=== PATIENT | female | born 1945 | race Caucasian/White ===

== ENCOUNTER → 2016-04-03 | Outpatient (CLI) | payer MEDICARE | LOC: GMAJ 10:58 | PROVIDERS: ATTEND Family Medicine | DX: M25.559 Pain in unspecified hip (principal) ==

== ENCOUNTER → 2016-04-27 | Outpatient (CLI) | payer MEDICARE ==
--- NOTE | 2016-04-28 07:46 | MRI ---
EXAM DESCRIPTION: MR LUMBAR SPINE WITHOUT IV CONTRAST CLINICAL HISTORY: 70 y/o F, RADICULITIS COMPARISON: None TECHNIQUE: Multi planar, multi sequence imaging of the lumbar spine was acquired without IV contrast. FINDINGS: Hemangioma seen within the T12 vertebral body. Marrow signal and alignment is unremarkable. Disc desiccation from L3-4 through L5-S1. Height loss at L3-4 and L4-5. The conus terminates at L1-L2. It is unremarkable. L1-L2: Facet degeneration. No spinal canal or neural foraminal narrowing. L2-L3: Facet degeneration. No spinal canal or neural foraminal narrowing. L3-4: Facet degeneration, ligamentum flavum thickening and a 4 mm circumferential disc bulge. No spinal canal or neural foraminal narrowing. L4-5: Moderate facet degeneration, ligamentum flavum thickening and a 4 mm circumferential disk osteophyte complex. The midline diameter of the spinal canal is narrowed to 8 mm. There is moderate bilateral neural foraminal narrowing. L5-S1: Mild facet degeneration. 2 mm circumferential disc bulge. No spinal canal or neural foraminal narrowing. IMPRESSION: Today's exam demonstrates multilevel degenerative change as described above, but no exiting or descending nerve root contact. There is mild spinal canal narrowing at L4-5 with moderate bilateral neural foraminal narrowing at L4-5 only. Large benign hemangioma seen within the T12 vertebral body. Electronically signed by: Adam Gallegos MD 04/28/2016 07:43
== END ==
LOC: MRI 11:56
PROVIDERS: ATTEND Anesthesiology Pain Medicine
DX: M54.17 Radiculopathy, lumbosacral region (principal); M12.88 Other specific arthropathies, not elsewhere classified, other specified site; D18.09 Hemangioma of other sites

== ENCOUNTER → 2016-04-27 | Outpatient (CLI) | payer MEDICARE | LOC: YCFC.O 09:54 | PROVIDERS: ATTEND Anesthesiology Pain Medicine | DX: Z79.891 Long term (current) use of opiate analgesic (principal) | CPT/HCPCS: 80354; 80358; 80365; G0479 ==

== ENCOUNTER 2016-05-04 18:01 | Emergency (ER) | payer MEDICARE ==
[2016-05-04] MEDS ORDERED: IPRATROPIUM/ALBUTEROL 3 ML VIAL NEB ONE (19:11)
--- NOTE | 2016-05-04 19:30 | RAD ---
NAME: VAIBHAV LEOPROCEDURE: XR CHEST 2 VIEWSORDER DATE: 05/04/2016 7:11 PM CSTACCESSION NUMBER: [id number] CLINICAL HISTORY: SOB INDICATION: Same as above COMPARISON: 03/04/2016 TECHNIQUE: PA and and lateral chest radiographs were obtained. FINDINGS: The lung thao are well inflated. There are no discrete airspace infiltrates, pneumothoraces or pleural effusions. The pulmonary vascularity is normal The cardiomediastinal silhouette is unremarkable for patient's age and sex. IMPRESSION: There is no acute pleural-parenchymal process seen in the imaged lung thao. Place of interpretation: Teleradiology. Electronically signed by: Gregg William MD 05/04/2016 7:29 PM SAMPLE SHOE INSPECTOR AND REWORKER
--- NOTE | 2016-05-04 20:04 | ED.PDOC ---
History of Present Illness - General Chief Complaint: Respiratory Problem Time Seen by Provider: 05/04/16 19:08 Source: patient, RN notes reviewed, Vital Signs reviewed Exam Limitations: no limitations - History of Present Illness Initial Comments: Patient is a 70 y/o female who comes in complaining of shortness of breath which started early this am. She has no cough or fever. She took some Coricidin earlier which did not help at all. She has a history of chronic bronchitis, however, she is not coughing this time. Timing/Duration: 24 hours Severity: moderate Improving Factors: nothing Worsening Factors: movement Associated Symptoms: shortness of breath Allergies/Adverse Reactions: Allergies Codeine Allergy (Verified 03/04/16 21:16) Home Medications: Ambulatory Orders Lorazepam 2 mg PO 11/21/13 Zyprexa 11/21/13 Zonisamide [Zonegran] 100 mg PO 08/16/14 Gabapentin 05/04/16 Ipratropium/Albuterol Inhaler [Combivent Respimat 20-100 Mcg/Act] 1 puff INH Q6H PRN #1 inh 05/04/16 Methylprednisolone [Medrol Dose Torin] 4 mg PO DAILY #1 pack 05/04/16 Pristiq 05/04/16 Review of Systems - Review of Systems Constitutional: States: no symptoms reported EENTM: States: no symptoms reported Respiratory: States: short of breath Cardiology: States: no symptoms reported Gastrointestinal/Abdominal: States: no symptoms reported Genitourinary: States: no symptoms reported Musculoskeletal: States: back pain Skin: States: no symptoms reported Neurological: States: no symptoms reported Endocrine: States: no symptoms reported Hematologic/Lymphatic: States: no symptoms reported All other Systems: Reviewed and Negative Past Medical History (General) - Patient Medical History Hx Seizures: Yes Hx Stroke: No Hx Dementia: No Hx Asthma: No Hx of COPD: No Hx Cardiac Disorders: Yes - Heart Cath Hx Congestive Heart Failure: No Hx Pacemaker: No Hx Hypertension: Yes Hx Thyroid Disease: No Hx Diabetes: No Hx Gastroesophageal Reflux: No Hx Renal Disease: No Hx Cancer: No Hx of HIV: No Hx Hepatitis C: No Hx MRSA: No MRSA Source:: Wound - Vaccination History Hx Tetanus, Diphtheria Vaccination: Yes Hx Influenza Vaccination: Yes Hx Pneumococcal Vaccination: Yes Immunizations Up to Date: Yes - Social History Hx Tobacco Use: No Hx Chewing Tobacco Use: No Hx Alcohol Use: No Hx Substance Use: No Hx Substance Use Treatment: No Hx Depression: No Feels Threatened In Home Enviroment: No Feels Threatened In a Relationship: No Hx Physical Abuse: No Hx Emotional Abuse: No Hx Suspected Abuse: No - Female History Patient is a Female of Child Bearing Age (10 -59 yrs old): No Patient : No Family Medical History - Family History Mother Family History: No Known Physical Exam - Physical Exam General Appearance: Alert, Comfortable, No apparent distress Ears, Nose, Throat: hearing grossly normal, normal ENT inspection Respiratory: lungs clear, no respiratory distress, no accessory muscle use, decreased breath sounds Cardiovascular/Chest: regular rate, rhythm, no edema, no gallop, no murmur Gastrointestinal/Abdominal: normal bowel sounds, non tender, soft, no organomegaly Extremity: non-tender, no pedal edema, no calf tenderness Neurologic: alert, normal mood/affect, oriented x 3 Skin Exam: normal color, warm/dry Progress - Results/Orders Results/Orders: 05/04/16 05/04/16 18:51 19:27 Temperature 98.8 F Pulse Rate 70 Pulse Rate [L 75 Arm] Respiratory 20 20 Rate Blood Pressure 141/78 [L Arm] O2 Sat by Pulse 93 L 98 Oximetry - EKG/XRAY/CT EKG: Sinus, no ST T wave changes, Unchanged from - 02/11/2016 Comments: NML axis, NML intervals, Normal sinus rhythm XRAY: chest Xray Comments: No acute process Departure - Departure Clinical Impression: Reactive airway disease with acute exacerbation Time of Disposition: 21:04 Disposition: Discharge to Home or Self Care Condition: Fair Departure Forms: ED Discharge - Pt. Copy, Patient Portal Self Enrollment Instructions: DI for Reactive Airway Disease-Adult, Reactive Airway Disease- Adult Diet: resume usual diet Referrals: Justin Harrison MD [Primary Care Provider] - 1-2 Weeks Prescriptions: Ipratropium/Albuterol Inhaler [Combivent Respimat 20-100 Mcg/Act] 1 puff INH Q6H PRN #1 inh PRN Reason: Shortness Of Breath Methylprednisolone [Medrol Dose Torin] 4 mg PO DAILY #1 pack Home Medications: Ambulatory Orders Lorazepam 2 mg PO 11/21/13 Zyprexa 11/21/13 Zonisamide [Zonegran] 100 mg PO 08/16/14 Gabapentin 05/04/16 Ipratropium/Albuterol Inhaler [Combivent Respimat 20-100 Mcg/Act] 1 puff INH Q6H PRN #1 inh 05/04/16 Methylprednisolone [Medrol Dose Torin] 4 mg PO DAILY #1 pack 05/04/16 Pristiq 05/04/16 Additional Instructions: Follow up in ED if symptoms worsen.
[2016-05-04] MEDS ORDERED: methylPREDNISolone SODIUM SUC 125 MG/2 ML VIAL IM ONE (20:22)
[2016-05-04 20:45] VITALS: TEMP 98.6
[2016-05-04 21:40] VITALS: BP 132/79; O2SAT 97
--- NOTE | 2016-05-24 23:55 | RAD ---
NAME: VAIBHAV LEOPROCEDURE: XR CHEST 2 VIEWSORDER DATE: 05/04/2016 7:11 PM CSTACCESSION NUMBER: [id number] CLINICAL HISTORY: SOB INDICATION: Same as above COMPARISON: 03/04/2016 TECHNIQUE: PA and and lateral chest radiographs were obtained. FINDINGS: The lung thao are well inflated. There are no discrete airspace infiltrates, pneumothoraces or pleural effusions. The pulmonary vascularity is normal The cardiomediastinal silhouette is unremarkable for patient's age and sex. IMPRESSION: There is no acute pleural-parenchymal process seen in the imaged lung thao. Place of interpretation: Teleradiology. Electronically signed by: Gregg William MD 05/04/2016 7:29 PM ESTHETICIAN/SKIN THERAPIST
--- NOTE | 2016-05-25 07:11 | RAD ---
NAME: VAIBHAV LEOPROCEDURE: XR CHEST 2 VIEWSORDER DATE: 05/04/2016 7:11 PM CSTACCESSION NUMBER: [id number] CLINICAL HISTORY: SOB INDICATION: Same as above COMPARISON: 03/04/2016 TECHNIQUE: PA and and lateral chest radiographs were obtained. FINDINGS: The lung thao are well inflated. There are no discrete airspace infiltrates, pneumothoraces or pleural effusions. The pulmonary vascularity is normal The cardiomediastinal silhouette is unremarkable for patient's age and sex. IMPRESSION: There is no acute pleural-parenchymal process seen in the imaged lung thao. Place of interpretation: Teleradiology. Electronically signed by: Gregg William MD 05/04/2016 7:29 PM TECHNOLOGY METHODOLOGY CONSULTANT
== END 2016-05-04 21:39 | disposition home or self-care (01) ==
LOC: ER 18:01
DX: J45.901 Unspecified asthma with (acute) exacerbation (principal); I10 Essential (primary) hypertension; Z88.6 Allergy status to analgesic agent; Z79.899 Other long term (current) drug therapy
CPT/HCPCS: 71020; 93005; 94640; J2930; J7620

== ENCOUNTER 2016-06-08 08:00 | Day surgery (SDC) | payer MEDICARE ==
[2016-06-08] MEDS ORDERED: methylPREDNISolone ACETATE 80 MG/ML VIAL ONE (09:58)
[2016-06-08] MEDS ORDERED: SODIUM BICARBONATE VIAL 50 MEQ/50 ML VIAL ONE (09:58)
[2016-06-08] MEDS ORDERED: SODIUM CHLORIDE 0.9% 10 ML VIAL ONE (09:58)
[2016-06-08] MEDS ORDERED: LIDOCAINE 1% MPF 5 ML VIAL ONE ×2 (09:58→10:09)
[2016-06-08 12:07] VITALS: BP 151/84; O2SAT 97
[2016-06-08 13:06] VITALS: TEMP 97.2
== END 2016-06-08 13:00 | disposition home or self-care (01) ==
LOC: AMB 08:00
PROVIDERS: ATTEND Anesthesiology Pain Medicine
DX: M51.16 Intervertebral disc disorders with radiculopathy, lumbar region (principal); Z88.8 Allergy status to other drugs, medicaments and biological substances; Z79.899 Other long term (current) drug therapy
CPT/HCPCS: 62323; 76000; J1030

== ENCOUNTER → 2016-10-02 | Outpatient (CLI) | payer MEDICARE ==
--- NOTE | 2016-10-02 18:19 | RAD ---
EXAM DESCRIPTION: Chest,2 Views CLINICAL HISTORY: 71 years Female COUGH COMPARISON: 05/04/2016 FINDINGS: The cardiomediastinal silhouette appears unremarkable. No consolidating infiltrates or pleural effusions. No pneumothorax. IMPRESSION: No acute abnormality is identified. Electronically signed by: Kaye Suarez 10/02/2016 6:18 PM CDT
== END | disposition home or self-care (01) ==
LOC: YCFC.O 13:48
PROVIDERS: ATTEND Nurse Practitioner Family
DX: R05 Cough (principal); R09.89 Other specified symptoms and signs involving the circulatory and respiratory systems

== ENCOUNTER → 2016-11-05 | Outpatient (CLI) | payer MEDICARE | END | disposition home or self-care (01) | LOC: GMAJ 11:08 | PROVIDERS: ATTEND Family Medicine | DX: E78.00 Pure hypercholesterolemia, unspecified (principal); I10 Essential (primary) hypertension; E11.9 Type 2 diabetes mellitus without complications ==

== ENCOUNTER → 2016-11-27 | Outpatient (CLI) | payer MEDICARE | END | disposition home or self-care (01) | LOC: GMA 19:05 | PROVIDERS: ATTEND Nurse Practitioner Family | DX: R30.0 Dysuria (principal); N30.00 Acute cystitis without hematuria ==

== ENCOUNTER → 2016-12-31 | Outpatient (CLI) | payer MEDICARE | END | disposition home or self-care (01) | LOC: GMA 16:52 | PROVIDERS: ATTEND Nurse Practitioner Family | DX: N39.0 Urinary tract infection, site not specified (principal) ==

== ENCOUNTER → 2017-04-08 | Outpatient (CLI) | payer MEDICARE | END | disposition home or self-care (01) | LOC: GMATM 17:46 | PROVIDERS: ATTEND Nurse Practitioner Family | DX: N39.0 Urinary tract infection, site not specified (principal) ==

== ENCOUNTER 2017-04-23 14:59 | Emergency (ER) | payer MEDICARE, OTHER ==
[2017-04-23 15:36] VITALS: BP 155/83; TEMP 98.2; O2SAT 95
--- NOTE | 2017-04-23 15:55 | ED.PDOC ---
History of Present Illness - General Chief Complaint: Problem Time Seen by Provider: 04/23/17 15:01 Source: patient Exam Limitations: no limitations - History of Present Illness Timing/Duration: 1 week, other - PT HAS SEEN BOTH A UROLOGIST AND PLASTIC HOSPITAL PRODUCTS ASSEMBLER FOR THE SAME ISSUES Severity: mild Improving Factors: nothing Worsening Factors: nothing Associated Symptoms: other - DYSURIA Allergies/Adverse Reactions: Allergies Codeine Allergy (Verified 03/04/16 21:16) Home Medications: Ambulatory Orders Lorazepam 2 mg PO 11/21/13 Zyprexa 11/21/13 Zonisamide [Zonegran] 100 mg PO 08/16/14 Gabapentin 05/04/16 Ipratropium/Albuterol Inhaler [Combivent Respimat 20-100 Mcg/Act] 1 puff INH Q6H PRN #1 inh 05/04/16 Methylprednisolone [Medrol Dose Torin] 4 mg PO DAILY #1 pack 05/04/16 Pristiq 05/04/16 Phenazopyridine HCl [Pyridium] 200 mg PO Q8HRS #14 tab 04/23/17 Review of Systems - Review of Systems Constitutional: States: chills EENTM: States: no symptoms reported Respiratory: States: no symptoms reported Cardiology: States: no symptoms reported Gastrointestinal/Abdominal: States: no symptoms reported Genitourinary: States: dysuria, frequency, pain Musculoskeletal: States: no symptoms reported Skin: States: no symptoms reported Neurological: States: no symptoms reported Endocrine: States: no symptoms reported Hematologic/Lymphatic: States: no symptoms reported All other Systems: Reviewed and Negative Past Medical History (General) - Patient Medical History Hx Seizures: No Hx Stroke: No Hx Dementia: No Hx Asthma: No Hx of COPD: No Hx Cardiac Disorders: Yes - Heart Cath Hx Congestive Heart Failure: No Hx Pacemaker: No Hx Hypertension: Yes Hx Thyroid Disease: No Hx Diabetes: No Hx Gastroesophageal Reflux: No Hx Renal Disease: Yes - SEES [employer]. MCQUEEN Hx Cancer: No Hx of HIV: No Hx Hepatitis C: No Hx MRSA: No Hx Other PMH: Yes - PSYCHIATRIC DISORDER MRSA Source:: Wound - Vaccination History Hx Tetanus, Diphtheria Vaccination: Yes Hx Influenza Vaccination: No Hx Pneumococcal Vaccination: Yes - Social History Hx Tobacco Use: No Hx Chewing Tobacco Use: No Hx Alcohol Use: No Hx Substance Use: No Hx Substance Use Treatment: No Hx Depression: No Hx Physical Abuse: No Hx Emotional Abuse: No Hx Suspected Abuse: No - Female History Patient : No Family Medical History - Family History Mother Family History: No Known Physical Exam - Physical Exam General Appearance: Alert, No apparent distress, Obese, Well Developed, Well Hydrated, Well Nourished Eye Exam: bilateral normal Ears, Nose, Throat: hearing grossly normal, normal ENT inspection, normal pharynx Neck: non-tender, full range of motion, supple Respiratory: chest non-tender, lungs clear, normal breath sounds, no respiratory distress, no accessory muscle use Cardiovascular/Chest: normal peripheral pulses, regular rate, rhythm, no edema, no gallop, no JVD Peripheral Pulses: radial,right: 2+, radial,left: 2+, posterior tibialis,right: 2+, posterior tibialis,left: 2+ Gastrointestinal/Abdominal: normal bowel sounds, non tender, soft, no organomegaly, no pulsatile mass Rectal Exam: deferred Back Exam: normal inspection, no CVA tenderness, no vertebral tenderness Extremity: normal range of motion, non-tender, normal inspection Skin Exam: normal color, warm/dry Lymphatic: no adenopathy Progress - Progress Progress: 04/23/17 16:30 PT URINE CLEAN. WILL START PYRIDIUM. PT HAS AN APPOINTMENT WEDNESDAY WITH DR. PALOMARES. Departure - Departure Clinical Impression: Dysuria, Urethritis Time of Disposition: 16:32 Disposition: Discharge to Home or Self Care Departure Forms: ED Discharge - Pt. Copy, Patient Portal Self Enrollment Activity: increase activity as tolerated Referrals: Justin Harrison MD [Primary Care Provider] - 1-2 Weeks Prescriptions: Phenazopyridine HCl [Pyridium] 200 mg PO Q8HRS #14 tab Home Medications: Ambulatory Orders Lorazepam 2 mg PO 11/21/13 Zyprexa 11/21/13 Zonisamide [Zonegran] 100 mg PO 08/16/14 Gabapentin 05/04/16 Ipratropium/Albuterol Inhaler [Combivent Respimat 20-100 Mcg/Act] 1 puff INH Q6H PRN #1 inh 05/04/16 Methylprednisolone [Medrol Dose Torin] 4 mg PO DAILY #1 pack 05/04/16 Pristiq 05/04/16 Phenazopyridine HCl [Pyridium] 200 mg PO Q8HRS #14 tab 04/23/17
[2017-04-23] MEDS ORDERED: PHENAZOPYRIDINE HCL 200 MG TAB PO ONE (16:28)
== END 2017-04-23 16:44 | disposition home or self-care (01) ==
LOC: ER 14:59
DX: N34.2 Other urethritis (principal); I10 Essential (primary) hypertension; F99 Mental disorder, not otherwise specified; Z79.899 Other long term (current) drug therapy

== ENCOUNTER → 2017-05-07 | Outpatient (CLI) | payer MEDICARE | LOC: LAB.O 09:58 | PROVIDERS: ATTEND Psychiatry & Neurology Psychiatry | DX: F25.0 Schizoaffective disorder, bipolar type (principal) ==

== ENCOUNTER 2017-07-18 18:14 | Emergency (ER) | payer MEDICARE, OTHER ==
[2017-07-18 18:28] VITALS: BP 136/84; TEMP 98.3; O2SAT 97
[2017-07-18] MEDS ORDERED: FLUCONAZOLE 100 MG TAB PO ONE (19:01)
--- NOTE | 2017-07-18 19:04 | ED.PDOC ---
History of Present Illness - General Chief Complaint: Problem Stated Complaint: burning with urination Time Seen by Provider: 07/18/17 18:35 Source: patient Exam Limitations: no limitations - History of Present Illness Initial Comments: the patient is a 72-year-old female presenting to the emergency room secondary to vaginal pain. The patient reports that she is having vaginal pain for at least 6 weeks. She is scheduled to be getting a urethral sling and a little more than a week with Dr. Jerez. She is urinating. She has been applying Vaseline topically periodically to what appears to be a rectocele. She is not using a pessary. No fevers.she does have significant stress incontinence. Timing/Duration: unsure Severity: moderate Improving Factors: nothing Worsening Factors: nothing Associated Symptoms: denies symptoms Allergies/Adverse Reactions: Allergies Codeine Allergy (Verified 07/18/17 18:28) Home Medications: Ambulatory Orders Lorazepam 2 mg PO 11/21/13 Zyprexa 11/21/13 Zonisamide [Zonegran] 100 mg PO 08/16/14 Gabapentin 05/04/16 Ipratropium/Albuterol Inhaler [Combivent Respimat 20-100 Mcg/Act] 1 puff INH Q6H PRN #1 inh 05/04/16 Methylprednisolone [Medrol Dose Torin] 4 mg PO DAILY #1 pack 05/04/16 Pristiq 05/04/16 Phenazopyridine HCl [Pyridium] 200 mg PO Q8HRS #14 tab 04/23/17 Review of Systems - Review of Systems Constitutional: States: no symptoms reported EENTM: States: no symptoms reported Respiratory: States: no symptoms reported Cardiology: States: no symptoms reported Gastrointestinal/Abdominal: States: no symptoms reported Genitourinary: States: see HPI Musculoskeletal: States: no symptoms reported Skin: States: no symptoms reported Neurological: States: anxiety Endocrine: States: no symptoms reported All other Systems: No Change from Baseline Past Medical History (General) - Patient Medical History Hx Seizures: No Hx Stroke: No Hx Dementia: No Hx Asthma: No Hx of COPD: No Hx Cardiac Disorders: Yes - Heart Cath Hx Congestive Heart Failure: No Hx Pacemaker: No Hx Hypertension: Yes Hx Thyroid Disease: No Hx Diabetes: No Hx Gastroesophageal Reflux: No Hx Renal Disease: Yes - SEES [employer] DR. MCQUEEN Hx Cancer: No Hx of HIV: No Hx Hepatitis C: No Hx MRSA: No MRSA Source:: Wound Surgical History: Hysterectomy, other - Vaccination History Hx Tetanus, Diphtheria Vaccination: Yes Hx Influenza Vaccination: No Hx Pneumococcal Vaccination: No - Social History Hx Tobacco Use: No Hx Chewing Tobacco Use: No Hx Alcohol Use: No Hx Substance Use: No Hx Substance Use Treatment: No Hx Depression: No Hx Physical Abuse: No Hx Emotional Abuse: No Hx Suspected Abuse: No - Female History Patient is a Female of Child Bearing Age (10 -59 yrs old): No Patient : No Family Medical History - Family History Mother Family History: No Known Physical Exam - Physical Exam General Appearance: Alert, Anxious, No apparent distress Eye Exam: bilateral normal Ears, Nose, Throat: hearing grossly normal, normal ENT inspection, normal pharynx Neck: full range of motion, supple Respiratory: no respiratory distress, no accessory muscle use Cardiovascular/Chest: normal peripheral pulses, no edema Peripheral Pulses: radial,right: 2+, radial,left: 2+, dorsalis pedis,right: 1+, dorsalis pedis,left: 1+ Gastrointestinal/Abdominal: non tender, soft Rectal Exam: other - pelvic exam shows a fairly large rectocele that has some mild abrasions from exposure to her underwear. There may also be a small abrasion just inferior to the urethral meatus. Palpation of these abrasions does seem to re-create her pain. Back Exam: no CVA tenderness, no vertebral tenderness Extremity: non-tender, no pedal edema, no calf tenderness, normal capillary refill Neurologic: department clerk II-XII nml as tested, alert, oriented x 3, other - anxiety Skin Exam: normal color Comments: Vital Signs - 24 hr 07/18/17 18:22 Temperature 98.3 F Pulse Rate [ 77 pulse ox] Respiratory 20 Rate Blood Pressure 136/84 [Left Arm] O2 Sat by Pulse 97 Oximetry Progress - Progress Progress: 07/18/17 19:06 the patient is a 72-year-old female presenting to the emergency room with what appears to be pain from a mechanical vaginitis likely related to her rectocele and exposure to the outside environment due to it. She is apparently scheduled for a repair with Dr. Jerez in the next week or 2. She needs to increase the frequency of applying a lubricant. She was given 1 dose of Diflucan in case a recurrent yeast infection is contributing somewhat to her symptoms. She can continue her home medications otherwise. She can discuss with Dr. Jerez this coming week if her surgery can be moved up secondary to discomfort. ER warnings were given. Departure - Departure Clinical Impression: Vaginitis Qualifiers: Chronicity: subacute Qualified Code(s): N76.1 - Subacute and chronic vaginitis Disposition: Discharge to Home or Self Care Condition: Fair Departure Forms: ED Discharge - Pt. Copy, Patient Portal Self Enrollment Instructions: Atrophic Vaginitis Diet: regular diet Activity: increase activity as tolerated Referrals: Justin Harrison MD [Primary Care Provider] - 1-2 Weeks Home Medications: Ambulatory Orders Lorazepam 2 mg PO 11/21/13 Zyprexa 11/21/13 Zonisamide [Zonegran] 100 mg PO 08/16/14 Gabapentin 05/04/16 Ipratropium/Albuterol Inhaler [Combivent Respimat 20-100 Mcg/Act] 1 puff INH Q6H PRN #1 inh 05/04/16 Methylprednisolone [Medrol Dose Torin] 4 mg PO DAILY #1 pack 05/04/16 Pristiq 05/04/16 Phenazopyridine HCl [Pyridium] 200 mg PO Q8HRS #14 tab 04/23/17 Additional Instructions: the patient is a 72-year-old female presenting to the emergency room with what appears to be pain from a mechanical vaginitis likely related to her rectocele and exposure to the outside environment due to it. She is apparently scheduled for a repair with Dr. Jerez in the next week or 2. She needs to increase the frequency of applying a lubricant. She was given 1 dose of Diflucan in case a recurrent yeast infection is contributing somewhat to her symptoms. She can continue her home medications otherwise. She can discuss with Dr. Jerez this coming week if her surgery can be moved up secondary to discomfort. ER warnings were given.
== END 2017-07-18 19:27 | disposition home or self-care (01) ==
LOC: ER 18:14
DX: N76.1 Subacute and chronic vaginitis (principal); N81.6 Rectocele; I10 Essential (primary) hypertension

== ENCOUNTER 2017-08-04 16:27 | Emergency (ER) | payer MEDICARE, OTHER ==
[2017-08-04 16:48] VITALS: BP 158/87; TEMP 97.6; O2SAT 94
--- NOTE | 2017-08-04 17:44 | ED.PDOC ---
History of Present Illness - General Chief Complaint: Problem Stated Complaint: urinary retention Time Seen by Provider: 08/04/17 16:49 Source: patient Exam Limitations: no limitations - History of Present Illness Initial Comments: Marly Clemente 72 y/o female stated that she had frequency of urination and burning sensation when she urinates for the last 7 weeks initally was seen by her cushion former and was told no surgical indication for her OAB at this time.She has history of dementia.Had seen primary Md and appointment with Urologist pending. Timing/Duration: other - see hpi Quality: burning, intermittent Onset Location: suprapubic Radiation: none Activites at Onset: none Prior abdominal problems: none Sexual intercourse history: not active Improving Factors: nothing Worsening Factors: other - see hpi Associated Symptoms: urinary frequency Allergies/Adverse Reactions: Allergies Codeine Allergy (Verified 08/04/17 16:48) Tramadol Allergy (Verified 08/04/17 16:49) Home Medications: Ambulatory Orders Lorazepam 2 mg PO 11/21/13 Zyprexa 11/21/13 Zonisamide [Zonegran] 100 mg PO 08/16/14 Gabapentin 05/04/16 Ipratropium/Albuterol Inhaler [Combivent Respimat 20-100 Mcg/Act] 1 puff INH Q6H PRN #1 inh 05/04/16 Methylprednisolone [Medrol Dose Torin] 4 mg PO DAILY #1 pack 05/04/16 Pristiq 05/04/16 Phenazopyridine HCl [Pyridium] 200 mg PO Q8HRS #14 tab 04/23/17 Review of Systems - Review of Systems Constitutional: States: no symptoms reported EENTM: States: no symptoms reported Respiratory: States: no symptoms reported Cardiology: States: no symptoms reported Genitourinary: States: see HPI Neurological: States: emotional problems All other Systems: Reviewed and Negative, No Change from Baseline Past Medical History (General) - Patient Medical History Hx Seizures: No Hx Stroke: No Hx Dementia: Yes Hx Asthma: No Hx of COPD: No Hx Cardiac Disorders: Yes - Heart Cath Hx Congestive Heart Failure: No Hx Pacemaker: No Hx Hypertension: Yes Hx Thyroid Disease: No Hx Diabetes: No Hx Gastroesophageal Reflux: No Hx Renal Disease: Yes - SEES [employer] DR. MCQUEEN Hx Cancer: No Hx of HIV: No Hx Hepatitis C: No Hx MRSA: No MRSA Source:: Wound Surgical History: cholecystectomy, other - left knee - Vaccination History Hx Tetanus, Diphtheria Vaccination: Yes Hx Influenza Vaccination: No Hx Pneumococcal Vaccination: No - Social History Hx Tobacco Use: No Hx Chewing Tobacco Use: No Hx Alcohol Use: No Hx Substance Use: No Hx Substance Use Treatment: No Hx Depression: No Hx Physical Abuse: No Hx Emotional Abuse: No Hx Suspected Abuse: No - Activities of Daily Living Grooming Ability: Independent Eating (Feeding) Ability: Independent Toileting Ability: Independent - Female History Patient : No Family Medical History - Family History Mother Family History: No Known Hx Cardiac Disease: Yes - multiple family members Physical Exam - Physical Exam General Appearance: Alert, Comfortable, No apparent distress Eyes, Ears, Nose, Throat Exam: normal ENT inspection Neck: full range of motion, supple, normal inspection Cardiovascular/Respiratory: regular rate, rhythm, no M/R/G, normal peripheral pulses Gastrointestinal/Abdominal: non tender, soft, no organomegaly Pelvic Exam: other - deferred stated done by cushion former Extremity: no pedal edema, no calf tenderness Neurologic: alert, oriented x 3 Skin Exam: normal color, warm/dry, other - healed scars from surgery Progress - Progress Progress: 08/04/17 17:48 Vital Signs - 8 hr 08/04/17 16:35 Temperature 97.6 F Pulse Rate [ 62 pulse ox] Respiratory 18 Rate Blood Pressure 158/87 [Left Arm] O2 Sat by Pulse 94 L Oximetry 08/04/17 17:49 Residual Urine-45 cc staight cath Departure - Departure Clinical Impression: Overactive bladder Time of Disposition: 17:50 Disposition: Discharge to Home or Self Care Condition: Fair Departure Forms: ED Discharge - Pt. Copy, Patient Portal Self Enrollment Instructions: Urinary Incontinence -- Female, DI for Urinary Tract Infection ( UTI), DI for Urinary Incontinence, DI for Urinary Retention in Women Referrals: Justin Harrison MD [Primary Care Provider] - 1-2 Weeks Home Medications: Ambulatory Orders Lorazepam 2 mg PO 11/21/13 Zyprexa 11/21/13 Zonisamide [Zonegran] 100 mg PO 08/16/14 Gabapentin 05/04/16 Ipratropium/Albuterol Inhaler [Combivent Respimat 20-100 Mcg/Act] 1 puff INH Q6H PRN #1 inh 05/04/16 Methylprednisolone [Medrol Dose Torin] 4 mg PO DAILY #1 pack 05/04/16 Pristiq 05/04/16 Phenazopyridine HCl [Pyridium] 200 mg PO Q8HRS #14 tab 04/23/17 Additional Instructions: Continue with antibiotics for UTI which was prescribed by your Md;Follow up with your primary Md for Referral to UROLOGIST;AVOID Caffeine drinks,spicy foods
[2017-08-04] MEDS ORDERED: PHENAZOPYRIDINE HCL 200 MG TAB PO ONE (17:47)
[2017-08-04] MEDS ORDERED: TOLTERODINE TARTRATE ER 4 MG CAP PO ONE (17:47)
== END 2017-08-04 18:10 | disposition home or self-care (01) ==
LOC: ER 16:27
DX: N32.81 Overactive bladder (principal); I10 Essential (primary) hypertension

== ENCOUNTER 2017-08-08 19:38 | Emergency (ER) | payer OTHER ==
--- NOTE | 2017-08-08 20:03 | ED.PDOC ---
History of Present Illness - General Chief Complaint: General Stated Complaint: sob,chest basurto,pain on urination Time Seen by Provider: 08/08/17 20:02 Source: patient Exam Limitations: no limitations, other - poor historian - History of Present Illness Initial Comments: Marly Clemente 72 y/o female stated that she got sob today with burning sensation on her bladder goes up to her chest and urinating more often.She was seen last week for urinary hesitancy but had only 45 cc of residual urine. Timing/Duration: 4-6 hours Severity: moderate Improving Factors: nothing Worsening Factors: nothing Associated Symptoms: other - see hpi Allergies/Adverse Reactions: Allergies Codeine Allergy (Verified 08/08/17 20:12) Tramadol Allergy (Verified 08/08/17 20:12) Home Medications: Ambulatory Orders Lorazepam 2 mg PO 11/21/13 Zyprexa 11/21/13 Zonisamide [Zonegran] 100 mg PO 08/16/14 Gabapentin 05/04/16 Ipratropium/Albuterol Inhaler [Combivent Respimat 20-100 Mcg/Act] 1 puff INH Q6H PRN #1 inh 05/04/16 Methylprednisolone [Medrol Dose Torin] 4 mg PO DAILY #1 pack 05/04/16 Pristiq 05/04/16 Phenazopyridine HCl [Pyridium] 200 mg PO Q8HRS #14 tab 04/23/17 Review of Systems - Review of Systems Constitutional: States: no symptoms reported EENTM: States: no symptoms reported Respiratory: States: no symptoms reported Cardiology: States: see HPI Gastrointestinal/Abdominal: States: no symptoms reported Genitourinary: States: other - OAB Musculoskeletal: States: no symptoms reported Skin: States: no symptoms reported Neurological: States: emotional problems - mental health issues Past Medical History (General) - Patient Medical History Hx Seizures: No Hx Stroke: No Hx Dementia: Yes Hx Asthma: No Hx of COPD: No Hx Cardiac Disorders: Yes - Heart Cath Hx Congestive Heart Failure: No Hx Pacemaker: No Hx Hypertension: Yes Hx Thyroid Disease: No Hx Diabetes: No Hx Gastroesophageal Reflux: No Hx Renal Disease: Yes - SEES [employer] DR. MCQUEEN Hx Cancer: No Hx of HIV: No Hx Hepatitis C: No Hx MRSA: No MRSA Source:: Wound Surgical History: cholecystectomy, other - left knee,cardiac cath - Vaccination History Hx Tetanus, Diphtheria Vaccination: Yes Hx Influenza Vaccination: No Hx Pneumococcal Vaccination: No - Social History Hx Tobacco Use: No Hx Chewing Tobacco Use: No Hx Alcohol Use: No Hx Substance Use: No Hx Substance Use Treatment: No Hx Depression: No Hx Physical Abuse: No Hx Emotional Abuse: No Hx Suspected Abuse: No - Activities of Daily Living Grooming Ability: Independent Eating (Feeding) Ability: Independent Toileting Ability: Independent - Female History Patient : No Family Medical History - Family History Mother Hx Cardiac Disease: Yes - multiple family members Physical Exam - Physical Exam General Appearance: Alert, Anxious, No apparent distress Eye Exam: bilateral normal Ears, Nose, Throat: hearing grossly normal, normal ENT inspection, normal pharynx Neck: non-tender, full range of motion, supple Respiratory: chest non-tender, lungs clear, normal breath sounds, no respiratory distress Cardiovascular/Chest: normal peripheral pulses, regular rate, rhythm, no murmur Peripheral Pulses: radial,right: 2+, radial,left: 2+ Gastrointestinal/Abdominal: normal bowel sounds, non tender, soft Back Exam: no CVA tenderness, no vertebral tenderness Extremity: no pedal edema, no calf tenderness Neurologic: no motor/sensory deficits, alert, oriented x 3 Skin Exam: normal color, warm/dry Progress - Progress Progress: 08/08/17 20:57 Vital Signs - 8 hr 08/08/17 19:45 Temperature 97.7 F Pulse Rate [ 60 monitor] Respiratory 16 Rate Blood Pressure 129/75 [Left Arm] O2 Sat by Pulse 96 Oximetry 08/08/17 21:48 Recommended IVF but does not like to wait wants to go home;discuss all test results that no acute abnormalities noted. - Results/Orders Results/Orders: 08/08/17 20:15 EKG STAT 08/08/17 21:12 BOLUS Sodium Chloride 0.9% 1000ML [Ns 1000 ml] 1,000 ml IVS ONCE Laboratory Results - last 24 hr 08/08/17 08/08/17 08/08/17 20:10 20:20 20:20 WBC 8.0 RBC 4.70 Hgb 13.7 Hct 41.4 MCV 88.0 MCH 29.2 MCHC 33.2 RDW 14.9 H Plt Count 472 H MPV 7.9 Absolute Neuts (auto) 4.90 Absolute Lymphs (auto) 2.30 Absolute Monos (auto) 0.60 Absolute Eos (auto) 0.10 Absolute Basos (auto) 0.10 Neutrophils % 61.2 Lymphocytes % 28.5 Monocytes % 7.9 Eosinophils % 1.1 Basophils % 1.3 PT 14.3 H INR 1.240 PTT (SP) 36.3 D-Dimer, Quantitative < 230 Sodium 138 Potassium 3.3 L Chloride 110 Carbon Dioxide 19 L Anion Gap 12.3 BUN 20 H Creatinine 1.00 BUN/Creatinine Ratio 20.0 Random Glucose 110 H Serum Osmolality 278.9 Calcium 9.5 Magnesium 1.8 Total Bilirubin 0.6 Direct Bilirubin 0.2 Indirect Bilirubin 0.4 AST 19 ALT 14 Alkaline Phosphatase 27 L Creatine Kinase 40 CK-MB (CK-2) 0.9 CK-MB (CK-2) % Not Reportable Troponin I < 0.02 B-Natriuretic Peptide 38.7 Serum Total Protein 7.3 Albumin 4.5 Urine Color Yellow Urine Appearance Sl cloudy Urine pH 5.0 Ur Specific Onset >= 1.030 Urine Protein Negative Urine Glucose (UA) Negative Urine Ketones Negative Urine Blood Negative Urine Nitrite Negative Urine Bilirubin Small H Urine Urobilinogen 0.2 Ur Leukocyte Esterase Negative Urine RBC 0-1 Urine WBC 0-1 Ur Epithelial Cells 5-10 Calcium Oxalate Crystal 2+ Urine Bacteria Rare Urine Mucus Moderate - EKG/XRAY/CT XRAY: chest - normal portable AP Departure - Departure Clinical Impression: OAB (overactive bladder), Chest pain of unknown etiology Time of Disposition: 21:49 Disposition: Discharge to Home or Self Care Condition: Fair Departure Forms: ED Discharge - Pt. Copy, Patient Portal Self Enrollment Instructions: DI for Urinary Incontinence Referrals: Justin Harrison MD [Primary Care Provider] - 1-2 Weeks Home Medications: Ambulatory Orders Lorazepam 2 mg PO 11/21/13 Zyprexa 11/21/13 Zonisamide [Zonegran] 100 mg PO 08/16/14 Gabapentin 05/04/16 Ipratropium/Albuterol Inhaler [Combivent Respimat 20-100 Mcg/Act] 1 puff INH Q6H PRN #1 inh 05/04/16 Methylprednisolone [Medrol Dose Torin] 4 mg PO DAILY #1 pack 05/04/16 Pristiq 05/04/16 Phenazopyridine HCl [Pyridium] 200 mg PO Q8HRS #14 tab 04/23/17 Additional Instructions: Follow up with primary Md in AM for referral to urologist;Return to emergency room as needed May take Benadryl 25 mg 1-2 pills for sleep at bedtime
[2017-08-08 20:13] VITALS: BP 129/75; O2SAT 96
--- NOTE | 2017-08-08 20:40 | RAD ---
EXAM: AP CHEST RADIOGRAPH CLINICAL INDICATION: Shortness of breath. COMPARISON: Chest radiograph October 02, 2016. FINDINGS: Cardiac size and pulmonary vasculature are normal. Lungs are clear. No pleural effusions or pneumothorax. No hilar or mediastinal lymphadenopathy. No mediastinal widening. No extraluminal bowel gas under the hemidiaphragms. Bones are intact on this single view. IMPRESSION: Normal portable AP chest radiograph. Electronically signed by: Darek Mcdonough MD 08/08/2017 8:39 PM CDT
[2017-08-08] MEDS ORDERED: SODIUM CHLORIDE 0.9% 1000ML 1,000 ML IVS ONE (21:12)
[2017-08-08 22:03] VITALS: TEMP 97.4
== END 2017-08-08 22:02 | disposition home or self-care (01) ==
LOC: ER 19:38
DX: R07.9 Chest pain, unspecified (principal); N32.81 Overactive bladder; F03.90 Unspecified dementia, unspecified severity, without behavioral disturbance, psychotic disturbance, mood disturbance, and anxiety; I10 Essential (primary) hypertension; N28.9 Disorder of kidney and ureter, unspecified

== ENCOUNTER → 2017-09-10 | Outpatient (CLI) | payer MEDICARE ==
--- NOTE | 2017-09-10 12:51 | CT ---
EXAM DESCRIPTION: Abdomen w/Contrast CLINICAL HISTORY: 72 years Female, NAUSEA COMPARISON: None. TECHNIQUE: Contiguous axial images through the abdomen were obtained after intravenous contrast administration. Sagittal and coronal reconstructions were reviewed. FINDINGS: Coronary artery atherosclerosis is noted. The imaged lower thorax otherwise appears normal. The liver appears grossly unremarkable. Gallbladder is surgically absent. There is resultant mild intrahepatic and extrahepatic ductal dilatation. The pancreas is predominantly atrophied with no ductal dilatation. The spleen, bilateral adrenal glands and kidneys appear normal. Moderate-sized hiatal hernia is noted. The stomach is mildly distended with no gross abnormality. The visualized small and large bowel loops appear grossly unremarkable. 6.6 x 3.2 cm midline anterior abdominal wall defect is noted at the level of the umbilicus with herniation of fat. Another 2 x 1.7 cm midline anterior abdominal wall defect with herniation of fat is noted in the supraumbilical region. The visualized aorta, inferior vena cava appear normal. No abnormally enlarged lymph nodes are identified. Mild degenerative changes are identified in the spine. IMPRESSION: 1. No acute intra-abdominal or intrapelvic process. 2. Two ventral abdominal wall hernias containing fat, as detailed above. 3. Moderate-sized hiatal hernia is noted. 4. Coronary artery atherosclerosis. This exam was performed according to our departmental dose-optimization program, which includes automated exposure control, adjustment of the mA and/or kV according to patient size and/or use of iterative reconstruction technique. Electronically signed by: Diana Arellano MD 09/10/2017 12:49 PM CDT
== END ==
LOC: CT 10:00
PROVIDERS: ATTEND Family Medicine
DX: R11.0 Nausea (principal); R53.82 Chronic fatigue, unspecified; K43.9 Ventral hernia without obstruction or gangrene; I25.10 Atherosclerotic heart disease of native coronary artery without angina pectoris

== ENCOUNTER → 2017-12-09 | Outpatient (CLI) | payer OTHER | LOC: GMATM 17:52 | PROVIDERS: ATTEND Nurse Practitioner Family | DX: R31.0 Gross hematuria (principal); R11.0 Nausea ==

== ENCOUNTER 2018-11-25 05:31 | Day surgery (SDC) | payer MEDICARE, OTHER ==
[2018-11-25] MEDS ORDERED: LIDOCAINE 1% 10 ML VIAL INJ ONE (07:00)
[2018-11-25] MEDS ORDERED: PROPOFOL 200 MG/20 ML VIAL IV ONE (07:00)
[2018-11-25] MEDS ORDERED: LACTATED RINGERS 1,000 ML ONE (07:03)
[2018-11-25] MEDS: LACTATED RINGERS 0 ML ONE (08:40)
--- NOTE | 2018-11-25 11:06 | OP ---
DATE OF PROCEDURE: 11/25/18 PREOPERATIVE DIAGNOSIS: 1. Screening colonoscopy. POSTOPERATIVE DIAGNOSIS: 1. Screening colonoscopy. PROCEDURE: 1. Colonoscopy with biopsies. SURGEON: Justin Juares MD ANESTHESIA: General. INDICATION: This is a 73-year-old woman here for a screening colonoscopy. PROCEDURE: General anesthesia was induced in the lateral position. Digital rectal exam was done and revealed no evidence of stricture, masses, fissures or fistula. The scope was gently inserted with minimal difficulty. She had a moderately good prep. In the right colon, there was some turbid liquid stool, but we irrigated most of it out for a good view. Once we reached the cecum, we then gently withdrew the scope without difficulty. It was a very nice exam. On the mid descending colon, there was a very small polyp about 2 mm that was excised. It was flat. Otherwise, nothing else significant was seen on exam. There was no significant diverticulosis. She tolerated the procedure. She was awakened and taken to Recovery to be discharged. #[id number] cc: Justin Harrison MD [facility]
[2018-11-25 11:22] VITALS: BP 132/53; TEMP 97.3; O2SAT 100
== END 2018-11-25 10:50 | disposition home or self-care, planned readmission (81) ==
LOC: AMB 05:31
PROVIDERS: ATTEND Surgery
DX: Z12.11 Encounter for screening for malignant neoplasm of colon (principal); K63.5 Polyp of colon; G40.802 Other epilepsy, not intractable, without status epilepticus; I25.10 Atherosclerotic heart disease of native coronary artery without angina pectoris; E11.9 Type 2 diabetes mellitus without complications; I10 Essential (primary) hypertension; F32.9 Major depressive disorder, single episode, unspecified; F03.90 Unspecified dementia, unspecified severity, without behavioral disturbance, psychotic disturbance, mood disturbance, and anxiety; E78.5 Hyperlipidemia, unspecified; Z96.60 Presence of unspecified orthopedic joint implant; Z90.49 Acquired absence of other specified parts of digestive tract; Z79.82 Long term (current) use of aspirin; Z79.899 Other long term (current) drug therapy
CPT/HCPCS: 00812; 45380; 88305; J3490; J7120

== ENCOUNTER → 2019-02-15 | Outpatient (CLI) | payer OTHER ==
--- NOTE | 2019-02-16 13:21 | MRI ---
EXAM DESCRIPTION: Brain w/o Contrast: MRI. CLINICAL HISTORY: DEMENTIA COMPARISON: None. TECHNIQUE: Multiplanar, high-field MRI unit, multiple diffusion sequences, multiple conventional sequences without contrast. FINDINGS: Bilateral confluent hyperintense FLAIR and T2-weighted signal in the in the periventricular white matter and the frontal horns and occipital horns. Also in the bilateral centrum semiovale. There are also subcortical focal hyperintense lesions in the frontal parietal and occipital lobes relatively symmetric.. No hemorrhage, no cerebral edema, no mass-effect. Minimal hyperintense T1 and T2 signal in the anterior right basal ganglia. Normal left basal ganglia. No hemorrhage, no parenchymal edema, no mass effect. Normal signal in the brainstem and cerebellar hemispheres. No hemorrhage, no parenchymal edema, no mass-effect. Concordance of the diffusion and non-diffusion sequences with no diffusion restriction. Cortical sulci, ventricles, and other CSF spaces, and the subdural spaces are normally configured for the patient's age. No effacement or displacement. No midline shift. No extra-axial hemorrhage. Normal flow signal void in the major vessels of the [place], and the venous sinuses. IACs are symmetric bilaterally. Normal signal in the bilateral mastoid air cells. No mass effect in the bilateral cerebellopontine angles. Pituitary gland occupies most of the sella. Base of the cerebellar tonsils is at the level of the foramen magnum. Minimal mucoperiosteal thickening in the. The bony calvarium is intact. IMPRESSION: 1. Bilateral white matter disease in the frontal parietal and occipital lobes and also right basal ganglia. Most likely related to cerebral microvascular disease and/or aging. No hemorrhage, no mass effect. No cerebral edema. 2. Normal noncontrast MRI diffusion study with no evidence of significant ischemia or infarction, acute or subacute. 3. Minimal chronic sinusitis. Electronically signed by: Quentin Yost MD 02/16/2019 1:19 PM [facility]
== END | disposition home or self-care (01) ==
LOC: MRI 14:00
PROVIDERS: ATTEND Psychiatry & Neurology Neurology
DX: G31.83 Neurocognitive disorder with Lewy bodies (principal); F02.80 Dementia in other diseases classified elsewhere, unspecified severity, without behavioral disturbance, psychotic disturbance, mood disturbance, and anxiety

== ENCOUNTER 2019-10-18 10:45 | Emergency (ER) | payer OTHER ==
--- NOTE | 2019-10-18 11:21 | ED.PDOC ---
History of Present Illness - General Chief Complaint: Trauma Stated Complaint: left sided pain Time Seen by Provider: 10/18/19 11:14 Source: patient, RN notes reviewed Exam Limitations: no limitations, other - History of Present Illness Initial Comments: 74 y/o female brought by ambulance after rolling out of her bed. She reports that her was able to help her up but she c/o L side pain. She reported to me that she was able to bear weight but usually gets around using a wheelchair. She says she always feels week and has chronic back pain. Denies any other physical complaints Occurred: just prior to arrival Pain Location: other - L side Method of Injury: fall Improving Factors: nothing Worsening Factors: nothing Loss of Consciousness: no loss of consciousness Associated Symptoms (Fall): other - weak, back pain. Hit her head but it doesn't hurt Allergies/Adverse Reactions: Allergies Codeine Allergy (Verified 08/08/17 20:12) Tramadol Allergy (Verified 08/08/17 20:12) Home Medications: Ambulatory Orders Lorazepam 2 mg PO 11/21/13 Zyprexa 11/21/13 Zonisamide [Zonegran] 100 mg PO 08/16/14 Gabapentin 05/04/16 Ipratropium/Albuterol Inhaler [Combivent Respimat 20-100 Mcg/Act] 1 puff INH Q6H PRN #1 inh 05/04/16 Methylprednisolone [Medrol Dose Torin] 4 mg PO DAILY #1 pack 05/04/16 Pristiq 05/04/16 Phenazopyridine HCl [Pyridium] 200 mg PO Q8HRS #14 tab 04/23/17 Cephalexin Monohydrate [Keflex] 500 mg PO QID #28 cap 10/18/19 Review of Systems - Review of Systems Constitutional: States: weakness EENTM: States: no symptoms reported Respiratory: States: no symptoms reported Cardiology: States: no symptoms reported Gastrointestinal/Abdominal: States: no symptoms reported Genitourinary: States: no symptoms reported Musculoskeletal: States: back pain Skin: States: no symptoms reported Neurological: States: no symptoms reported Past Medical History (General) - Patient Medical History Hx Seizures: No Hx Stroke: No Hx Dementia: Yes Hx Asthma: No Hx of COPD: No Hx Cardiac Disorders: Yes - Heart Cath Hx Congestive Heart Failure: No Hx Pacemaker: No Hx Hypertension: Yes Hx Thyroid Disease: No Hx Diabetes: No Hx Gastroesophageal Reflux: No Hx Renal Disease: Yes - SEES [employer] DR. MCQUEEN Hx Cancer: No Hx of HIV: No Hx Hepatitis C: No Hx MRSA: No MRSA Source:: Wound - Vaccination History Hx Tetanus, Diphtheria Vaccination: Yes Hx Influenza Vaccination: No Hx Pneumococcal Vaccination: No - Social History Hx Tobacco Use: No Hx Chewing Tobacco Use: No Hx Alcohol Use: No Hx Substance Use: No Hx Substance Use Treatment: No Hx Depression: No Hx Physical Abuse: No Hx Emotional Abuse: No Hx Suspected Abuse: No - Female History Patient : No Family Medical History - Family History Mother Family History: No Known Hx Cardiac Disease: Yes - multiple family members Physical Exam - Physical Exam General Appearance: Alert Head Injury: no evidence of injury Eye Exam: bilateral normal ENT Exam: hearing grossly normal, no evidence of ENT injury Neck Exam: non-tender, full range of motion, normal alignment, normal inspection Cardiovascular/Respiratory: regular rate, rhythm, no M/R/G, normal peripheral pulses, normal breath sounds, no respiratory distress Gastrointestinal/Abdominal: normal bowel sounds, non tender, soft Back Exam: vertebral tenderness - thoracic and lumbar Extremity Exam: no evidence of injury Neurologic: no motor/sensory deficits, alert - flat affect Skin Exam: pallor Departure - Departure Clinical Impression: Musculoskeletal back pain, UTI (urinary tract infection) Fall Qualifiers: Encounter type: initial encounter Qualified Code(s): W19.XXXA - Unspecified fall, initial encounter Disposition: Discharge to Home or Self Care Condition: Fair Departure Forms: ED Discharge - Pt. Copy, Patient Portal Self Enrollment Instructions: DI for Trauma Referrals: Justin Harrison MD [Primary Care Provider] - 1-2 Weeks Prescriptions: Cephalexin Monohydrate [Keflex] 500 mg PO QID #28 cap Home Medications: Ambulatory Orders Lorazepam 2 mg PO 11/21/13 Zyprexa 11/21/13 Zonisamide [Zonegran] 100 mg PO 08/16/14 Gabapentin 05/04/16 Ipratropium/Albuterol Inhaler [Combivent Respimat 20-100 Mcg/Act] 1 puff INH Q6H PRN #1 inh 05/04/16 Methylprednisolone [Medrol Dose Torin] 4 mg PO DAILY #1 pack 05/04/16 Pristiq 05/04/16 Phenazopyridine HCl [Pyridium] 200 mg PO Q8HRS #14 tab 04/23/17 Cephalexin Monohydrate [Keflex] 500 mg PO QID #28 cap 10/18/19
--- NOTE | 2019-10-18 11:49 | CT ---
Study: CT of the Thoracic Spine. CT of the lumbar spine. Indication: injury Technique: Axial CT images of the thoracic spine acquired without intravenous contrast. Coronal and sagittal reformats performed. This exam was performed according to our departmental dose-optimization program, which includes automated exposure control, adjustment of the mA and/or kV according to patient size and/or use of iterative reconstruction technique. Comparison: None. Findings: No acute thoracic or lumbar fracture. No acute subluxation. Mild dextrocurvature thoracic spine. Mild mild loss disc space height throughout the thoracic spine with scattered syndesmophyte formation. No high-grade thoracic spinal canal narrowing or neural foraminal narrowing. Mild cardiomegaly. Scattered atherosclerosis. Small hiatal hernia. Levocurvature of the lower lumbar spine. Multilevel lumbar disc disease, most pronounced at L4-L5 where there is severe right lateral disc space height loss, ex vacuo disc phenomenon, disc osteophyte complex, moderate to severe right and moderate left neural foraminal narrowing, and moderate spinal canal narrowing. Impression: No acute thoracic or lumbar fracture. Multilevel thoracic and lumbar disk disease, most pronounced at L4-L5 as above. Dedicated MRI could better evaluate the degenerative changes as clinically indicated. Electronically signed by: Reinier Gage MD 10/18/2019 11:47 AM CDT
--- NOTE | 2019-10-18 11:50 | RAD ---
Study: Single Frontal Radiograph of the Chest. Indication:injury Comparison: May 26, 2019 Impression: Heart size normal. Lungs clear. No acute osseous abnormality. Electronically signed by: Reinier Gage MD 10/18/2019 11:48 AM CDT
--- NOTE | 2019-10-18 11:50 | RAD ---
Single frontal radiograph pelvis Indication: injury Comparison: March 05, 2016 Impression: No acute fracture the pelvis identified. Evaluation for fracture is limited given the degree of osteopenia. If high clinical concern for acute fracture, correlation with MRI recommended given its greater sensitivity in the osteopenic patient. If the patient cannot tolerate MRI imaging or more urgent imaging is required, CT could be performed, however it is less sensitive in the osteopenic patient when compared to MRI. Minimal bilateral hip osteoarthritis. Mild pubic symphysis osteoarthritis. Lower lumbar disc disease. Electronically signed by: Reinier Gage MD 10/18/2019 11:48 AM CDT
[2019-10-18] MEDS ORDERED: POTASSIUM CHLORIDE 20 MEQ TAB PO ONE (12:18)
[2019-10-18 12:57] VITALS: BP 137/68; TEMP 97.9; O2SAT 97
== END 2019-10-19 12:55 | disposition home or self-care (01) ==
LOC: ER 10:45
DX: M54.6 Pain in thoracic spine (principal); M54.5 Low back pain; N39.0 Urinary tract infection, site not specified; R53.1 Weakness; G89.29 Other chronic pain; I10 Essential (primary) hypertension; F03.90 Unspecified dementia, unspecified severity, without behavioral disturbance, psychotic disturbance, mood disturbance, and anxiety; I51.9 Heart disease, unspecified; Z79.899 Other long term (current) drug therapy; Z88.5 Allergy status to narcotic agent

== ENCOUNTER 2019-10-26 19:46 | Observation (INO) | payer OTHER ==
--- NOTE | 2019-10-26 20:29 | ED.PDOC ---
History of Present Illness - General Chief Complaint: Trauma Stated Complaint: fallen several times today Time Seen by Provider: 10/26/19 20:01 - History of Present Illness Initial Comments: 74 yo F poor historian [facility] Alzheimer's Dementia presents to the ED sent from home when pressed medical alert button after frequenbt falls at home. No obvious signs of injury and non contributory in history in any meaningful way. Has outside PMD. Daughter called on phone to inform of pt arrival and there is no accompanying information or medication list. Pt. calm in bed NAD.Daughter reports frequent falls at home and increased confusion. Allergies/Adverse Reactions: Allergies Codeine Allergy (Verified 08/08/17 20:12) Tramadol Allergy (Verified 08/08/17 20:12) Home Medications: Ambulatory Orders Lorazepam 2 mg PO 11/21/13 Zyprexa 11/21/13 Zonisamide [Zonegran] 100 mg PO 08/16/14 Gabapentin 05/04/16 Ipratropium/Albuterol Inhaler [Combivent Respimat 20-100 Mcg/Act] 1 puff INH Q6H PRN #1 inh 05/04/16 Methylprednisolone [Medrol Dose Torin] 4 mg PO DAILY #1 pack 05/04/16 Pristiq 05/04/16 Phenazopyridine HCl [Pyridium] 200 mg PO Q8HRS #14 tab 04/23/17 Cephalexin Monohydrate [Keflex] 500 mg PO QID #28 cap 10/18/19 Review of Systems - Review of Systems Constitutional: States: see HPI EENTM: States: see HPI Respiratory: States: see HPI Cardiology: States: see HPI Gastrointestinal/Abdominal: States: see HPI Genitourinary: States: see HPI Musculoskeletal: States: see HPI Skin: States: see HPI Neurological: States: see HPI Endocrine: States: see HPI Hematologic/Lymphatic: States: see HPI Past Medical History (General) - Patient Medical History Hx Seizures: No Hx Stroke: No Hx Dementia: Yes Hx Asthma: No Hx of COPD: No Hx Cardiac Disorders: Yes - Heart Cath Hx Congestive Heart Failure: No Hx Pacemaker: No Hx Hypertension: Yes Hx Thyroid Disease: No Hx Diabetes: No Hx Gastroesophageal Reflux: No Hx Renal Disease: Yes - SEES [employer] DR. MCQUEEN Hx Cancer: No Hx of HIV: No Hx Hepatitis C: No Hx MRSA: No MRSA Source:: Wound - Vaccination History Hx Tetanus, Diphtheria Vaccination: Yes Hx Influenza Vaccination: No Hx Pneumococcal Vaccination: No - Social History Hx Tobacco Use: No Hx Chewing Tobacco Use: No Hx Alcohol Use: No Hx Substance Use: No Hx Substance Use Treatment: No Hx Depression: No Hx Physical Abuse: No Hx Emotional Abuse: No Hx Suspected Abuse: No - Female History Patient : No Family Medical History - Family History Mother Family History: No Known Hx Cardiac Disease: Yes - multiple family members Physical Exam - Physical Exam General Appearance: No apparent distress Eye Exam: bilateral normal Ears, Nose, Throat: normal ENT inspection Neck: non-tender Respiratory: no respiratory distress Cardiovascular/Chest: regular rate, rhythm Gastrointestinal/Abdominal: non tender, soft Rectal Exam: deferred Back Exam: normal inspection Extremity: non-tender Neurologic: no motor/sensory deficits Skin Exam: normal color Progress - Progress Progress: 10/26/19 20:41 A/P-Altered Mental Status, Frequent Falls, Abnormal EKG, Back Pain, Myalgias (per family pt with back pain/myalgia)-iv bolus cbc cmp trop threat monitoring analyst pulse ox cxr xr pelvis ct head ua xr lumbar spine reassess 10/26/19 20:42 EKG-Non specific TW changes No STEMI TWI lead I,aVL, biphasic TW Lead II, III TWI V2-V5 Biphasic TW V6 changed from prior EKG Laboratory Tests 10/26/19 10/26/19 10/26/19 19:35 20:06 20:06 WBC 9.1 RBC 4.69 Hgb 14.2 Hct 40.8 MCV 87.1 MCH 30.2 MCHC 34.7 RDW 14.5 Plt Count 344 MPV 7.8 Absolute Neuts (auto) 6.60 Absolute Lymphs (auto) 1.60 Absolute Monos (auto) 0.80 Absolute Eos (auto) 0.10 Absolute Basos (auto) 0.00 Neutrophils % 73.0 Lymphocytes % 17.4 L Monocytes % 8.3 Eosinophils % 0.9 L Basophils % 0.4 PT 11.0 H INR 1.11 PTT (SP) 25.9 Sodium 139 Potassium 3.5 L Chloride 106 Carbon Dioxide 23 Anion Gap 13.5 BUN 18 Creatinine 0.96 BUN/Creatinine Ratio 18.8 Random Glucose 145 H Serum Osmolality 282.0 Calcium 9.5 Total Bilirubin 0.9 AST 62 H ALT 29 Alkaline Phosphatase 50 Serum Total Protein 7.3 Albumin 4.2 Globulin 3.1 Albumin/Globulin Ratio 1.4 10/26/19 20:45 10/26/19 23:30 Spoke to Ailin Accepts ADMISSION - Results/Orders Results/Orders: now at bedside 10:45pm Laboratory Tests 10/26/19 10/26/19 10/26/19 19:35 20:06 20:06 WBC 9.1 RBC 4.69 Hgb 14.2 Hct 40.8 MCV 87.1 MCH 30.2 MCHC 34.7 RDW 14.5 Plt Count 344 MPV 7.8 Absolute Neuts (auto) 6.60 Absolute Lymphs (auto) 1.60 Absolute Monos (auto) 0.80 Absolute Eos (auto) 0.10 Absolute Basos (auto) 0.00 Neutrophils % 73.0 Lymphocytes % 17.4 L Monocytes % 8.3 Eosinophils % 0.9 L Basophils % 0.4 PT 11.0 H INR 1.11 PTT (SP) 25.9 Sodium 139 Potassium 3.5 L Chloride 106 Carbon Dioxide 23 Anion Gap 13.5 BUN 18 Creatinine 0.96 BUN/Creatinine Ratio 18.8 Random Glucose 145 H Serum Osmolality 282.0 Calcium 9.5 Total Bilirubin 0.9 AST 62 H ALT 29 Alkaline Phosphatase 50 Troponin I Serum Total Protein 7.3 Albumin 4.2 Globulin 3.1 Albumin/Globulin Ratio 1.4 10/26/19 21:39 WBC RBC Hgb Hct MCV MCH MCHC RDW Plt Count MPV Absolute Neuts (auto) Absolute Lymphs (auto) Absolute Monos (auto) Absolute Eos (auto) Absolute Basos (auto) Neutrophils % Lymphocytes % Monocytes % Eosinophils % Basophils % PT INR PTT (SP) Sodium Potassium Chloride Carbon Dioxide Anion Gap BUN Creatinine BUN/Creatinine Ratio Random Glucose Serum Osmolality Calcium Total Bilirubin AST ALT Alkaline Phosphatase Troponin I < 0.02 EXAM: Lumbar Spine 3 Views CLINICAL INDICATION: Low back pain. COMPARISON: There is no previous study for comparison. FINDINGS: Three views of the lumbar spine reveal no fracture, compression deformity, or subluxation. There is moderate disc space narrowing at L3-4, L4-5, and L5-S1. Small endplate osteophytes are seen at multiple levels. IMPRESSION: Moderate degenerative changes in the lumbar spine. Electronically signed by: Jhonatan Montana MD 10/25 9:19 PM CDT Serum Total Protein Albumin Globulin Albumin/Globulin Ratio EXAM: CT head without contrast CLINICAL INDICATION: Trauma COMPARISON: There is no previous study for comparison. TECHNIQUE: CT scan was done using contiguous axial 5 mm sections through the brain. This exam was performed according to our departmental dose-optimization program, which includes automated exposure control, adjustment of the mA and/or kV according to patient size and/or use of iterative reconstruction technique. FINDINGS: There is no midline shift, mass effect, or extraaxial fluid collection. There is no evidence of acute intracranial hemorrhage, mass lesion, or cerebral edema. Mild diffuse atrophy and nonspecific chronic ischemic changes are identified. Bone window images reveal no evidence of a skull fracture. IMPRESSION: No evidence of an acute intracranial process. Electronically signed by: Jhonatan Montana MD 10/26/2019 9:19 PM CDT EXAM: Chest,1 View CLINICAL INDICATION: Trauma COMPARISON: There is no previous study for comparison. FINDINGS: A single view of the chest was obtained. The heart size is normal. The pulmonary vascularity is unremarkable. The lungs are clear. There is no consolidation, infiltrate, pleural effusion, or pneumothorax. The visualized osseous structures are unremarkable. IMPRESSION: Normal chest radiograph. Electronically signed by: Jhonatan Montana MD 10/26/2019 9:18 PM CDT EXAM: Pelvis CLINICAL INDICATION: Trauma COMPARISON: There is no previous study for comparison. IMPRESSION: A single view of the pelvis reveals an intact bony ring. There are no fractures or bone lesions. The hip joints, SI joints, and pubic symphysis are unremarkable. IMPRESSION: Negative single view of the pelvis. Electronically signed by: Jhonatan Montana MD 10/26/2019 9:18 PM CDT Departure - Departure Clinical Impression: Frequent falls, Abnormal EKG, Myalgia Altered mental status Qualifiers: Altered mental status type: unspecified Qualified Code(s): R41.82 - Altered mental status, unspecified Back pain Qualifiers: Back pain location: back pain in unspecified location Chronicity: unspecified Back pain laterality: unspecified Qualified Code(s): M54.9 - Dorsalgia, unspecified Time of Disposition: 23:31 Disposition: Admit Patient Condition: Fair Departure Forms: ED Discharge - Pt. Copy, Patient Portal Self Enrollment Instructions: DI for Trauma Referrals: Justin Harrison MD [Primary Care Provider] - 1-2 Weeks Home Medications: Ambulatory Orders Lorazepam 2 mg PO 11/21/13 Zyprexa 11/21/13 Zonisamide [Zonegran] 100 mg PO 08/16/14 Gabapentin 05/04/16 Ipratropium/Albuterol Inhaler [Combivent Respimat 20-100 Mcg/Act] 1 puff INH Q6H PRN #1 inh 05/04/16 Methylprednisolone [Medrol Dose Torin] 4 mg PO DAILY #1 pack 05/04/16 Pristiq 05/04/16 Phenazopyridine HCl [Pyridium] 200 mg PO Q8HRS #14 tab 04/23/17 Cephalexin Monohydrate [Keflex] 500 mg PO QID #28 cap 10/18/19 Decision To Admit - Decistion To Admit Decision to Admit Reason: Admit from ER Decision to Admit Date: 10/26/19 Decision to Admit Time: 23:32
--- NOTE | 2019-10-26 21:19 | RAD ---
EXAM: Pelvis CLINICAL INDICATION: Trauma COMPARISON: There is no previous study for comparison. IMPRESSION: A single view of the pelvis reveals an intact bony ring. There are no fractures or bone lesions. The hip joints, SI joints, and pubic symphysis are unremarkable. IMPRESSION: Negative single view of the pelvis. Electronically signed by: Jhonatan Montana MD 10/26/2019 9:18 PM CDT
--- NOTE | 2019-10-26 21:20 | RAD ---
EXAM: Lumbar Spine 3 Views CLINICAL INDICATION: Low back pain. COMPARISON: There is no previous study for comparison. FINDINGS: Three views of the lumbar spine reveal no fracture, compression deformity, or subluxation. There is moderate disc space narrowing at L3-4, L4-5, and L5-S1. Small endplate osteophytes are seen at multiple levels. IMPRESSION: Moderate degenerative changes in the lumbar spine. Electronically signed by: Jhonatan Montana MD 10/26/2019 9:19 PM CDT
--- NOTE | 2019-10-26 21:20 | RAD ---
EXAM: Chest,1 View CLINICAL INDICATION: Trauma COMPARISON: There is no previous study for comparison. FINDINGS: A single view of the chest was obtained. The heart size is normal. The pulmonary vascularity is unremarkable. The lungs are clear. There is no consolidation, infiltrate, pleural effusion, or pneumothorax. The visualized osseous structures are unremarkable. IMPRESSION: Normal chest radiograph. Electronically signed by: Jhonatan Montana MD 10/26/2019 9:18 PM CDT
--- NOTE | 2019-10-26 21:21 | CT ---
EXAM: CT head without contrast CLINICAL INDICATION: Trauma COMPARISON: There is no previous study for comparison. TECHNIQUE: CT scan was done using contiguous axial 5 mm sections through the brain. This exam was performed according to our departmental dose-optimization program, which includes automated exposure control, adjustment of the mA and/or kV according to patient size and/or use of iterative reconstruction technique. FINDINGS: There is no midline shift, mass effect, or extraaxial fluid collection. There is no evidence of acute intracranial hemorrhage, mass lesion, or cerebral edema. Mild diffuse atrophy and nonspecific chronic ischemic changes are identified. Bone window images reveal no evidence of a skull fracture. IMPRESSION: No evidence of an acute intracranial process. Electronically signed by: Jhonatan Montana MD 10/26/2019 9:19 PM CDT
--- NOTE | 2019-10-27 01:37 | HP ---
SUPERVISING PHYSICIAN: Jose Raul Anderson MD CHIEF COMPLAINT: Altered mental status with increased falls. HISTORY OF PRESENT ILLNESS: This is a 74-year-old female patient who has Lewy body dementia and Parkinson's that came to the Emergency Room via EMS after her pressed the medical alert button. She had been falling frequently at home. She also has had altered mental status with increased confusion that is different from her baseline. In the Emergency Room, her initial vital signs showed temperature 97.6, heart rate 73, blood pressure 110/50, respiratory rate 16, O2 saturation 94%. Lab studies were done. Her CBC was unremarkable. Electrolytes were basically within normal limits with the exception of her potassium was slightly low at 3.5 and AST was elevated at 62. Urinalysis showed 15 urine ketones, 3 to 5 urine WBCs and 2+ urine bacteria. She also had a head CT that showed no evidence of acute intracranial process. Pelvis x-ray showed negative single view of the pelvis. Her lumbar spine x-ray shows moderate degenerative changes in the lumbar spine. Her chest x-ray showed normal chest radiogram. The patient was quite confused in the Emergency Room and due to her frequent falls as well as her altered mental status with increased confusion, I was called for hospital admission. PAST MEDICAL HISTORY: 1. Gastroesophageal reflux disease. 2. Osteoarthritis. 3. Hyperlipidemia. 4. Coronary artery disease. 5. Chronic bronchitis. 6. Lewy body dementia. 7. Parkinson's disease. PAST SURGICAL HISTORY: 1. Appendectomy. 2. Cholecystectomy. 3. Left knee replacement. 4. Bronchoscopy x2. 5. Angioplasty. OUTPATIENT MEDICATIONS: 1. Quetiapine. 2. Perphenazine. 3. Metoprolol. 4. Gabapentin. 5. Aspirin. 6. Ativan. 7. Pantoprazole. ALLERGIES: CODEINE, TRAMADOL. FAMILY HISTORY: Positive for colon cancer. SOCIAL HISTORY: She is . She lives in [place]. Dr. Harrison is her primary care physician. She denies tobacco, ETOH or illicit drug use. REVIEW OF SYSTEMS: GENERAL: Negative for fever, chills or weight changes. HEENT: Negative for sinus symptoms, ear pain, vision changes or sore throat. RESPIRATORY: Negative for wheezing, coughing or shortness of breath. CARDIAC: Negative for chest pain, palpitations or tachycardia. GASTROINTESTINAL: Negative for nausea, vomiting, diarrhea. GENITOURINARY: Negative for hematuria, dysuria or polyuria. SKIN: Negative for lesions or rashes. NEUROLOGIC: As per history of present illness. PHYSICAL EXAMINATION: VITAL SIGNS: Temperature 97.2, heart rate 61, blood pressure 95/59, respiratory rate 20, O2 saturation 96% on room air. GENERAL: This is a 74-year-old female patient who is lying in her hospital bed. She is in no acute distress. HEENT: Normocephalic, atraumatic. Pupils are equal and reactive. Oropharynx is clear. NECK: Supple without mass. RESPIRATORY: Essentially clear to auscultation bilaterally. CARDIOVASCULAR: Regular rate and rhythm. GASTROINTESTINAL: Abdomen is soft, nondistended, nontender. Bowel sounds are positive. GENITOURINARY: Deferred. BACK: Deferred. EXTREMITIES: No cyanosis, clubbing or edema. NEUROLOGIC: Awake and alert. She has very slowed speech. She can answer simple yes/no questions appropriately. SKIN: Warm and dry. LABORATORY: Followup CBC this morning was unremarkable. Electrolytes are basically within normal limits with the exception of her potassium is low at 3.5. Hemoglobin A1c 5.7. AST improved to 52. COVID-19 was negative. RADIOLOGY: Reports are as per history of present illness. IMPRESSION: 1. Altered mental status with increased confusion. 2. Weakness with frequent falls. 3. Urinary tract infection, pending culture results. 4. Lewy body dementia. 5. Parkinson's disease. 6. Gastroesophageal reflux disease. 7. Hypertension. PLAN: The patient has been placed in observation. I have ordered neuro checks and a physical therapy evaluation. Hopefully, we can get her to [facility] to optimize her strength and decrease falls. Her home medications will be restarted as soon as they are verified. I put her on a proton pump inhibitor for ulcer prophylaxis and Lovenox for DVT prophylaxis. I have also given her Rocephin for a urinary tract infection as well as did a urine culture. I have ordered a hold on labs for in the morning with the exception of potassium and I have given her some potassium supplementation. We will continue to monitor the patient closely and follow as needed. [id number] [facility]
[2019-10-27] MEDS ORDERED: ONDANSETRON INJ 4 MG/2 ML VIAL IV PRN (03:06)
[2019-10-27] MEDS ORDERED: SODIUM CHLORIDE 0.9% (FLUSH) 10 ML SYG IV PRN (03:06)
[2019-10-27] MEDS ORDERED: IV SET AND CAP CHANGE INJ INJ SCH (03:30)
[2019-10-27] MEDS ORDERED: LORazepam 1 MG TAB PO PRN ×2 (05:29→17:30)
[2019-10-27] MEDS: ACETAMINOPHEN 325 MG TAB PO PRN ×2 (05:44→20:25)
[2019-10-27] MEDS: PANTOPRAZOLE SODIUM IV 40 MG VIAL IV SCH (06:11)
[2019-10-27] MEDS ORDERED: POTASSIUM CHLORIDE 20 MEQ TAB PO ONE (08:31)
[2019-10-27] MEDS ORDERED: POTASSIUM CHLORIDE 20 MEQ TAB ONE (09:17)
[2019-10-27] MEDS: SODIUM CHLORIDE 0.9% (FLUSH) 10 ML SYG IV SCH ×2 (09:56→20:52)
[2019-10-27] MEDS ORDERED: cefTRIAXone SODIUM 1 GM in SODIUM CHL 0.9% 50ML MIN-BAG+ 50 ML IVPB SCH (11:30)
--- NOTE | 2019-10-27 14:37 | US ---
PROVIDED CLINICAL HISTORY/REASON FOR EXAM: ams TECHNIQUE: 2D real time grayscale and color flow Doppler images of the extracranial carotid artery systems and vertebral arteries were acquired. In addition, Doppler spectral waveforms and peak systolic velocities were acquired. COMPARISON: No priors. FINDINGS: CAROTID MEASUREMENTS: RIGHT ICA - PSV: 66 cm/sec EDV: 13 cm/sec LEFT ICA - PSV: 64 cm/sec EDV: 14 cm/sec PLAQUE CHARACTERIZATION: RIGHT ICA - mild plaque LEFT ICA - mild plaque VERTEBRAL ARTERIES: RIGHT VERTEBRAL - Antegrade LEFT VERTEBRAL - Antegrade Additional findings: None Degree of ICA stenosis (Consensus criteria - NASCET CRITERIA) <50%: PSV < 125 cm/sec, ICA/CCA <2 50-69 %: PSV 125-230 cm/sec, ICA/CCA 2.0-4.0 >/=70%: PSV >230 cm/sec, ICA/CCA >4 IMPRESSION: No hemodynamically significant stenosis of the extracranial internal carotid arteries (0 to 49% stenosis). Electronically signed by: Bon Ruiz MD 10/27/2019 2:35 PM CDT
[2019-10-27] MEDS ORDERED: GABAPENTIN 300 MG CAP ONE (19:29)
[2019-10-27] MEDS ORDERED: QUEtiapine FUMARATE 100 MG TAB ONE (19:29)
[2019-10-27] MEDS ORDERED: ENOXAPARIN SODIUM 40 MG/0.4 ML SYG SUBCU ONE (19:30)
[2019-10-27] MEDS: PERPHENAZINE 4 MG PO SCH (20:27)
[2019-10-27] MEDS ORDERED: NON-FORMULARY MEDICATION 1 EA MIS (Gabapentin [Gabapentin] 600 MG) PO SCH (21:00)
[2019-10-27] MEDS ORDERED: ENOXAPARIN SODIUM 40 MG/0.4 ML SYG SUBCU SCH (21:00)
[2019-10-27] MEDS ORDERED: QUETIAPINE FUMARATE 300 MG PO SCH (21:00)
[2019-10-28 05:55] VITALS: BP 164/81; TEMP 97; O2SAT 94
[2019-10-28] MEDS: PANTOPRAZOLE SODIUM IV 40 MG VIAL IV SCH (06:28)
[2019-10-28] MEDS ORDERED: ASPIRIN (CHEWABLE) 81 MG TAB PO SCH (09:00)
[2019-10-28] MEDS ORDERED: GABAPENTIN 300 MG CAP PO SCH (09:00)
[2019-10-28] MEDS ORDERED: METOPROLOL SUCCINATE XL 25 MG TAB PO SCH (09:00)
[2019-10-28] MEDS: PERPHENAZINE 4 MG PO SCH (09:10)
[2019-10-28] MEDS: SODIUM CHLORIDE 0.9% (FLUSH) 10 ML SYG IV SCH (09:10)
--- NOTE | 2019-10-28 16:07 | DS ---
SUPERVISING PHYSICIAN: Jose Raul Anderson M.D. DISCHARGE DIAGNOSIS: 1. Altered mental status with increased confusion that has improved. 2. Weakness with frequent falls. 3. Urinary tract infection, pending culture results. 4. Lewy body dementia. 5. Parkinson's disease. 6. Gastroesophageal reflux disease. 7. Hypertension. HISTORY OF PRESENT ILLNESS: This is a 74-year-old female patient who has Lewy body dementia and Parkinson's that presented to the Emergency Room via EMS after her pressed her medical alert button. She had been falling frequently at home. According to the daughter and the , her mental status has changed and she is having increased confusion that is different from her baseline. In the Emergency Room, her initial vital signs showed temperature 97.6, heart rate 73, blood pressure 110/50, respiratory rate 16, O2 saturation 94%. Labs were done. Her CBC was unremarkable. Electrolytes were basically within normal limits with the exception of her potassium was slightly low at 3.5 and AST was elevated at 62. Urinalysis showed 15 urine ketones, 3 to 5 urine WBCs and 2+ urine bacteria. She also had a head CT that showed no evidence of acute intracranial process. Pelvis x-ray showed negative single view of the pelvis. Her lumbar spine x-ray shows moderate degenerative changes. Her chest x-ray showed normal chest radiogram. She was quite confused in the Emergency Room. Due to her frequent falls as well as her altered mental status, she was placed in observation in the hospital. HOSPITAL COURSE: The patient was placed in observation on the Medical/Surgical floor. She had ordered neurologic checks as well as a physical therapy evaluation. Physical Therapy felt that she would benefit from some rehab. [facility] in [place] was called for evaluation. Pending insurance approval, they were willing to take her for rehab. Her home medications were restarted. She was placed on a proton pump inhibitor for ulcer prophylaxis and Lovenox for DVT prophylaxis. She was given Rocephin for a urinary tract infection and her urine culture is still pending. She received some potassium supplementation. Overnight her vital signs remained stable. She has agreed to go to [facility], but she will have to be discharged home pending approval from [facility]. LABORATORY: Followup CBC and chemistry panel were unremarkable. Hemoglobin A1c was 5.7. Urine culture shows no growth after 24 hours and is still pending. Respiratory panel showed negative COVID-19. Carotid ultrasound showed no hemodynamically significant stenosis of the extracranial and internal carotid arteries. She will be discharged home today pending transfer from home to [facility] in [place]. DISCHARGE PLAN: The patient will be discharged home in stable condition. She is to resume her previous diet and increase her activity as tolerated. As soon as [employer] inspiratory approves, [facility] will come get the patient to take her to the rehab facility in [place]. She is to followup with Dr. Harrison, her primary care physician, within the next 1 to 2 weeks. In addition to her routine home medications, she will also be on Cefdinir for 7 days. She is to return to the hospital or followup with Dr. Harrison for any problems or complications. DISCHARGE MEDICATIONS: 1. Lorazepam. 2. Aspirin. 3. Metoprolol. 4. Gabapentin. 5. Quetiapine. 6. Perphenazine. 7. Pantoprazole. 8. Cefdinir. [facility][id number] [facility]
[2019-10-28] MEDS ORDERED: QUEtiapine FUMARATE 100 MG TAB PO SCH (21:00)
== END 2019-10-28 10:00 | disposition home or self-care (01) ==
LOC: ER 19:46 → MS 10-27 01:36
PROVIDERS: ADMIT Nurse Practitioner Acute Care; ATTEND Nurse Practitioner Acute Care
DX: R41.82 Altered mental status, unspecified (principal); R53.1 Weakness; R29.6 Repeated falls; N39.0 Urinary tract infection, site not specified; G31.83 Neurocognitive disorder with Lewy bodies; F02.80 Dementia in other diseases classified elsewhere, unspecified severity, without behavioral disturbance, psychotic disturbance, mood disturbance, and anxiety; K21.9 Gastro-esophageal reflux disease without esophagitis; I10 Essential (primary) hypertension; E87.6 Hypokalemia; R94.31 Abnormal electrocardiogram [ECG] [EKG]; M47.816 Spondylosis without myelopathy or radiculopathy, lumbar region; E78.5 Hyperlipidemia, unspecified; I25.10 Atherosclerotic heart disease of native coronary artery without angina pectoris; M19.90 Unspecified osteoarthritis, unspecified site; Z91.81 History of falling; Z11.59 Encounter for screening for other viral diseases; Z79.82 Long term (current) use of aspirin; Z79.899 Other long term (current) drug therapy; Z88.6 Allergy status to analgesic agent; Z96.652 Presence of left artificial knee joint; Z90.49 Acquired absence of other specified parts of digestive tract; Z80.0 Family history of malignant neoplasm of digestive organs
CPT/HCPCS: 96374; 96375; 96376; 96372; J0696; J1650; A4216 ×2; J7050; 80053 ×2; 87086; 83036; 36415 ×2; 81001; 85025 ×2; 83735; 85730; 85610; 84443; 84484; 71045; 72170; 72100; 70450; 93880; 94760 ×4; 97116; 97162; 99285; 93005; G0378; 87635

== ENCOUNTER 2019-11-01 07:47 | Observation (INO) | payer OTHER ==
--- NOTE | 2019-11-01 09:15 | RAD ---
EXAM DESCRIPTION: Elbow,Right 2 Views CLINICAL HISTORY: recurrent falls with pain COMPARISON: None. TECHNIQUE: 2 views right FINDINGS: I see no bone joint or soft tissue normality. IMPRESSION: Unremarkable right elbow. Electronically signed by: Khris Santos MD 11/01/2019 9:14 AM CDT
--- NOTE | 2019-11-01 09:17 | RAD ---
EXAM DESCRIPTION: Chest,1 View CLINICAL HISTORY: recurrent falls with pain COMPARISON: 26 October 2019 TECHNIQUE: 1 view upright chest FINDINGS: The lungs are clear. There is no infiltrate or effusion. The heart is normal size. IMPRESSION: Normal one view chest Electronically signed by: Khris Santos MD 11/01/2019 9:15 AM CDT
--- NOTE | 2019-11-01 09:18 | RAD ---
EXAM DESCRIPTION: Femur,Right CLINICAL HISTORY: recurrent falls with pain COMPARISON: None. TECHNIQUE: 2 views right FINDINGS: Advanced degenerative changes are observed in the knee. No fracturing is detected. IMPRESSION: Marked degenerative changes are observed in the knee. No fracturing is detected. Electronically signed by: Khris Santos MD 11/01/2019 9:16 AM CDT
--- NOTE | 2019-11-01 09:19 | RAD ---
EXAM DESCRIPTION: Hand,Right 2 Views CLINICAL HISTORY: recurrent falls with pain COMPARISON: None. TECHNIQUE: 2 views right FINDINGS: Degenerative changes are observed in the distal interphalangeal joints. No fracture is detected. Mild degenerative changes are observed in the metacarpal carpal articulation of the first digit. IMPRESSION: Degenerative changes are observed. No fracturing is detected. Electronically signed by: Khris Santos MD 11/01/2019 9:17 AM CDT
--- NOTE | 2019-11-01 09:20 | RAD ---
EXAM DESCRIPTION: Pelvis CLINICAL HISTORY: recurrent falls with pain COMPARISON: 26 October 2019 TECHNIQUE: AP pelvis FINDINGS: The pelvis is intact. No fracturing is detected. The proximal femurs are also intact. Degenerative changes are observed in the lower lumbar spine. IMPRESSION: No fracturing is detected. Electronically signed by: Khris Santos MD 11/01/2019 9:18 AM CDT
--- NOTE | 2019-11-01 09:21 | RAD ---
EXAM DESCRIPTION: Shoulder,Right 2 or More Views CLINICAL HISTORY: recurrent falls with pain COMPARISON: None. TECHNIQUE: 2 views right FINDINGS: Very mild degenerative changes are observed in the acromio clavicular joint. No evidence for fracture or dislocation is seen. IMPRESSION: No fracturing is detected. Electronically signed by: Khris Santos MD 11/01/2019 9:19 AM CDT
[2019-11-01] MEDS ORDERED: SODIUM CHLORIDE 0.9% 1000ML 1,000 ML IVS ONE (09:23)
--- NOTE | 2019-11-01 09:23 | CT ---
EXAM DESCRIPTION: Head CLINICAL HISTORY: 74 years Female, recurrent falls COMPARISON: 26 October 2019 TECHNIQUE: Transaxial images were obtained without intravenous contrast media. Sagittal and coronal reconstruction was performed.This exam was performed according to our departmental dose-optimization program, which includes automated exposure control, adjustment of the mA and/or kV according to patient size and/or use of iterative reconstruction technique. FINDINGS: No skull fracturing is detected. Portions of the paranasal sinuses and the orbits as imaged are normal. No evidence of intracranial hemorrhage is observed. Periventricular white matter low-attenuation is observed consistent with ischemic demyelination. No mass lesions or mass effect are observed. IMPRESSION: Senescent changes are observed. No acute parenchymal pathology is detected. Electronically signed by: Khris Santos MD 11/01/2019 9:22 AM CDT
--- NOTE | 2019-11-01 09:27 | CT ---
EXAM DESCRIPTION: Cervical Spine CLINICAL HISTORY: recurrent falls COMPARISON: None June 2008 TECHNIQUE: Cervical CT is performed with thin-section axial imaging. MPRs are created and reviewed as well.This exam was performed according to our departmental dose-optimization program, which includes automated exposure control, adjustment of the mA and/or kV according to patient size and/or use of iterative reconstruction technique. FINDINGS: There is good alignment of the cervical spine. There is no vertebral abnormality. All cervical intervertebral discs maintain their height normally. There is no canal or foraminal compromise. No fracturing is detected. Mild degenerative changes are noted. A nodule is observed in the left thyroid lobe. Further evaluation with sonography should be considered. IMPRESSION: 1. The cervical spine is essentially normal for age. No fracturing is detected. 2. A left thyroid mass is observed. Further evaluation with thyroid sonography should be considered. Electronically signed by: Khris Santos MD 11/01/2019 9:25 AM CDT
[2019-11-01] MEDS ORDERED: ACETAMINOPHEN 325 MG TAB PO ONE (09:37)
[2019-11-01] MEDS ORDERED: ACETAMINOPHEN 325 MG TAB ONE (09:38)
--- NOTE | 2019-11-01 10:16 | ED.PDOC ---
History of Present Illness - General Chief Complaint: Trauma Stated Complaint: Fall Time Seen by Provider: 11/01/19 08:01 Source: patient, RN/MD Exam Limitations: clinical condition - History of Present Illness Initial Comments: The patient is a 74-year-old female presented emergency room again secondary to a fall. The patient apparently fell sometime in the middle of the night on her right side. She spent an unknown amount of time on the floor. The patient has apparently had multiple falls over the last 2 weeks. The patient does have known advancing dementia. The patient does show some significant confusion currently. Speech is somewhat slow. Thought processes are obviously disturbed. She does appear to have some mild confusion and delirium. She does not really somnolent. According to report, the patient has had progressive weakness over the last 2 weeks. As she is upon arrival here, she requires 2 person assist to stand. The patient is markedly orthostatic with a 50 point drop in her systolic blood pressure from sitting to standing. She does get dizzy and almost passed out with this. There is no response of tachycardic response secondary to metoprolol usage. The patient was apparently already being treated for urinary tract infection. By report, the patient also has had a markedly decreased oral intake over the last 2 to 3 days both of solids and liquids. Decreased urine output as well. The patient apparently lives with her who is normally in good health either and he is only minimally able to help her. The patient is reporting pain of the right side of the pelvis as well as the right elbow. There are no obvious deformities. She also has some right shoulder and right clavicle pain. No neck pain. She does not think that she passed out but she is uncertain. No obvious new head trauma. Timing/Duration: unsure, constant, getting worse Severity: moderate Improving Factors: immobilization Worsening Factors: movement Associated Symptoms: loss of appetite, malaise, weakness, other Allergies/Adverse Reactions: Allergies Codeine Allergy (Verified 11/01/19 08:04) Tramadol Allergy (Verified 11/01/19 08:04) Home Medications: Ambulatory Orders Aspirin [Aspirin Childrens] 81 mg PO DAILY 10/27/19 Gabapentin 600 mg PO TID 10/27/19 Lorazepam [Ativan] 2 mg PO BID PRN 10/27/19 Metoprolol Succinate [Metoprolol Succinate ER] 25 mg PO DAILY 10/27/19 Pantoprazole Sodium 20 mg PO DAILY 10/27/19 Perphenazine 4 mg PO BID 10/27/19 Quetiapine Fumarate 300 mg PO BEDTIME 10/27/19 Cefdinir 300 mg PO BID #14 capsule 10/28/19 Review of Systems - Review of Systems Constitutional: States: malaise, weakness - Generalized EENTM: States: no symptoms reported Respiratory: States: no symptoms reported Cardiology: States: no symptoms reported Gastrointestinal/Abdominal: States: see HPI Genitourinary: States: no symptoms reported Musculoskeletal: States: see HPI Skin: States: other - Mild bruising over the point of impact. No large skin tears or lacerations. 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 MCQUEEN Hx Cancer: No Hx of HIV: No Hx Hepatitis C: No Hx MRSA: No MRSA Source:: Wound Surgical History: no surgical history - Vaccination History Hx Tetanus, Diphtheria Vaccination: Yes Hx Influenza Vaccination: No Hx Pneumococcal Vaccination: No - Social History Hx Tobacco Use: No Hx Chewing Tobacco Use: No Hx Alcohol Use: No Hx Substance Use: No Hx Substance Use Treatment: No Hx Depression: No Hx Physical Abuse: No Hx Emotional Abuse: No Hx Suspected Abuse: No - Activities of Daily Living Hospice Agency (if applicable):: None - Female History Patient is a Female of Child Bearing Age (10 -59 yrs old): No Patient : No Family Medical History - Family History Mother Family History: No Known Hx Cardiac Disease: Yes - multiple family members Physical Exam - Physical Exam General Appearance: Frail, Lethargic - The patient is drowsy but when she is awake she is anxious, Ill Appearing, Unkempt Eye Exam: bilateral normal Ears, Nose, Throat: hearing grossly normal, normal pharynx - Mucous membranes are mildly dry Neck: non-tender, full range of motion, supple Respiratory: lungs clear, normal breath sounds, no respiratory distress, no accessory muscle use Cardiovascular/Chest: normal peripheral pulses, no edema, other - Regular rate Peripheral Pulses: radial,right: 2+, radial,left: 2+ Gastrointestinal/Abdominal: non tender, soft, other - Mild right lower quadrant versus right hip discomfort. Worse with movement. Rectal Exam: deferred Back Exam: no vertebral tenderness Extremity: no pedal edema, no calf tenderness, normal capillary refill, other - Mild to moderate pain with motion of the right hip and right elbow as well as the right shoulder. All areas are also tender to palpation. No gross deformity. 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 The patient has generalized weakness as evidenced by the 2 person requirement for assistance with standing. No focal neurological motor deficit however. She is markedly confused and for the most time sleeps. Skin Exam: pallor Comments: Vital Signs - 24 hr 11/01/19 11/01/19 11/01/19 07:59 08:01 08:30 Temperature 97.1 F L 97.1 F L Pulse Rate [ 72 72 75 brachial] Respiratory 18 18 18 Rate Blood Pressure 154/86 156/91 [Left Arm] O2 Sat by Pulse 99 93 L Oximetry 11/01/19 11/01/19 11/01/19 08:31 08:32 08:48 Temperature 97.1 F L 97.1 F L 96.8 F L Pulse Rate [ 71 65 72 brachial] Respiratory 18 18 18 Rate Blood Pressure 141/76 106/71 159/88 [Left Arm] O2 Sat by Pulse 94 L 94 L 95 Oximetry 11/01/19 09:00 Temperature 96.8 F L Pulse Rate [ 71 brachial] Respiratory 18 Rate Blood Pressure 142/87 [Left Arm] O2 Sat by Pulse 93 L Oximetry Progress - Progress Progress: 11/01/19 10:21 The patient is a 74-year-old female presented emergency room secondary to a another fall. The patient is an unknown amount of time on the floor overnight. She does appear to have mild rhabdomyolysis in relation to that. Renal function will need to be followed. The patient is receiving her first l iter of IV fluids. Additionally to that end, the patient has had significant failure to thrive. She has had markedly decreased oral intake altogether over the last 2 to 3 days. She is significantly dehydrated and markedly orthostatic at this point. The IV fluid should help with that as well. Calorie counts may prove beneficial on this patient. An appetite stimulant may also prove beneficial. Additionally the patient is very lethargic and confused. A temporary at least decrease in her psychiatric medications may prove beneficial in this respect. The patient is much more deconditioned on my evaluation today than on her previous descriptions of her physical status last week. The patient would benefit from longer term placement where at least 2 people can help her get around. She is unable to stand on her own at this point. I do believe there is significant rehabilitation potential at least from the standpoint of the deconditioning. It will have to be seen how much her mental status can improve given her history of Lewy body dementia. Patient does still have a mild urinary tract infection. This will need to be followed for clearance. Consideration may be given towards reducing the beta-sallie to allow for more of a tachycardic response with standing, in order to help prevent further orthostatic episodes. Imaging at least so far is reassuring. Admit for continued care. - Results/Orders Results/Orders: Is clear. Right elbow x-ray is negative. 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 Right hand x-ray shows DJD. Pelvis x-ray is negative. Right shoulder x- ray is negative. CT scan of the head shows chronic changes. CT scan of the cervical spine shows expected degenerative changes along with a left thyroid mass that needs an ultrasound in the future. Laboratory Tests 11/01/19 11/01/19 11/01/19 08:25 08:25 08:25 WBC 12.3 H RBC 5.10 Hgb 15.2 Hct 44.4 MCV 87.1 MCH 29.8 MCHC 34.2 RDW 14.7 H Plt Count 379 MPV 7.7 Absolute Neuts (auto) 9.20 H Absolute Lymphs (auto) 2.00 Absolute Monos (auto) 1.00 H Absolute Eos (auto) 0.00 Absolute Basos (auto) 0.10 Neutrophils % 74.5 Lymphocytes % 16.3 L Monocytes % 7.8 Eosinophils % 0.4 L Basophils % 1.0 Sodium 138 Potassium 4.2 Chloride 100 L Carbon Dioxide 25 Anion Gap 17.2 BUN 22 H Creatinine 0.93 BUN/Creatinine Ratio 23.7 H Random Glucose 95 Serum Osmolality 278.8 Lactic Acid Calcium 9.8 Magnesium 1.9 Total Bilirubin 1.1 H AST 79 H ALT 28 Alkaline Phosphatase 54 Creatine Kinase 1488 H* CK-MB (CK-2) 11.0 H* CK-MB (CK-2) % 0.74 Troponin I 0.03 B-Natriuretic Peptide 20.5 Serum Total Protein 7.6 Albumin 4.4 Globulin 3.2 Albumin/Globulin Ratio 1.4 TSH 1.06 Urine Color Urine Appearance Urine pH Ur Specific [place] Urine Protein Urine Glucose (UA) Urine Ketones Urine Blood Urine Nitrite Urine Bilirubin Urine Urobilinogen Ur Leukocyte Esterase Urine RBC Urine WBC Ur Epithelial Cells Amorphous Sediment Urine Bacteria Urine Mucus 11/01/19 11/01/19 08:25 08:50 WBC RBC Hgb Hct MCV MCH MCHC RDW Plt Count MPV Absolute Neuts (auto) Absolute Lymphs (auto) Absolute Monos (auto) Absolute Eos (auto) Absolute Basos (auto) Neutrophils % Lymphocytes % Monocytes % Eosinophils % Basophils % Sodium Potassium Chloride Carbon Dioxide Anion Gap BUN Creatinine BUN/Creatinine Ratio Random Glucose Serum Osmolality Lactic Acid 1.0 Calcium Magnesium Total Bilirubin AST ALT Alkaline Phosphatase Creatine Kinase CK-MB (CK-2) CK-MB (CK-2) % Troponin I B-Natriuretic Peptide Serum Total Protein Albumin Globulin Albumin/Globulin Ratio TSH Urine Color Yellow Urine Appearance Clear Urine pH 5.0 Ur Specific [place] >= 1.030 Urine Protein Negative Urine Glucose (UA) Negative Urine Ketones 40 H Urine Blood Small H Urine Nitrite Negative Urine Bilirubin Large Urine Urobilinogen 0.2 Ur Leukocyte Esterase Negative Urine RBC 5-10 H Urine WBC 3-5 H Ur Epithelial Cells 5-10 Amorphous Sediment Trace Urine Bacteria 1+ Urine Mucus Large Departure - Departure Clinical Impression: Inability to perform activities of daily living, Orthostasis, Anorexia nervosa without bulimia, Delirium Fall at home Qualifiers: Encounter type: initial encounter Qualified Code(s): W19.XXXA - Unspecified fall, initial encounter; Y92.009 - Unspecified place in unspecified non- institutional (private) residence as the place of occurrence of the external cause Lewy body dementia Qualifiers: Dementia behavioral disturbance: with behavioral disturbance Qualified Code(s): G31.83 - Dementia with Lewy bodies; F02.81 - Dementia in other diseases classified elsewhere with behavioral disturbance Failure to thrive Qualifiers: Failure to thrive age range: in adult Qualified Code(s): R62.7 - Adult failure to thrive Traumatic rhabdomyolysis Qualifiers: Encounter type: initial encounter Qualified Code(s): T79.6XXA - Traumatic ischemia of muscle, initial encounter Disposition: Admit Patient Departure Forms: ED Discharge - Pt. Copy, Patient Portal Self Enrollment Referrals: Justin Harrison MD [Primary Care Provider] - 1-2 Weeks Home Medications: Ambulatory Orders Aspirin [Aspirin Childrens] 81 mg PO DAILY 10/27/19 Gabapentin 600 mg PO TID 10/27/19 Lorazepam [Ativan] 2 mg PO BID PRN 10/27/19 Metoprolol Succinate [Metoprolol Succinate ER] 25 mg PO DAILY 10/27/19 Pantoprazole Sodium 20 mg PO DAILY 10/27/19 Perphenazine 4 mg PO BID 10/27/19 Quetiapine Fumarate 300 mg PO BEDTIME 10/27/19 Cefdinir 300 mg PO BID #14 capsule 10/28/19 Decision To Admit - Decistion To Admit Decision to Admit Reason: Medical Nature Decision to Admit Date: 11/01/19 Decision to Admit Time: 10:26
--- NOTE | 2019-11-01 10:59 | HP ---
SUPERVISING PHYSICIAN: Luis Mitchell MD CHIEF COMPLAINT: Multiple falls, increasing weakness. HISTORY OF PRESENT ILLNESS: Ms. Clemente is a 74-year-old female patient that has a past medical history of Lewy body dementia and Parkinson's disease. She had a recent history of being in the Emergency Room on the 10/27/19 with multiple falls, was placed in observation and discharged go to rehab facility at [facility] due to her significant deconditioning and multiple falls, however, the insurance did not accept her as a patient and recommended she could improve at home or possibly a long-term unit. The patient was discharged home and over the weekend, sustained multiple falls, in fact, EMS was called to her house 4 or 5 times over the weekend as noted today in the Emergency Room on review of those records due to the patient being a very poor historian. The patient was notably confused and dehydrated. Apparently she had fallen at home again as her is her cook cashier food prep, but apparently not able to significantly help her due to the fact that she requires two-person assist to stand. They are not sure how long she was on the floor before EMS was called. She is unsure if she passed out, but she does note she has had some dizziness when she stands up. She also had a urinary tract infection on discharge and was still being treated for this, but has had a significant decrease in urine output, oral intake and significant deconditioning over the weekend. A workup in the Emergency Room was completed. No acute bony injuries were noted. Her laboratory studies did show she had a mild leukocytosis, but no left shift. Her electrolytes were within normal limits, but BUN was elevated indicating some dehydration. Her CPK was elevated at 1480. Troponin was normal at 0.03. TSH was normal at 1.06. Urinalysis with catheterized urine showed 40 ketones, small amount of blood. Microscopic showed 5 to 10 RBCs, 3 to 5 WBCs, 5 to 10 epithelials, trace amorphus material and 1+ bacteria with large amount of mucus. Her vital signs in the Emergency Room showed she was mildly hypothermic with temperature 96.8, pulse 92, blood pressure 159/92 sitting, but supine she was 158/81 and standing 142/87. Heart rate was only 71. Oxygen saturation 96% on room air. Radiographic studies were completed of her upper extremities, pelvis and cervical spine with CT with no acute findings. Given the fact that she has Parkinson's, Lewy body dementia and has been falling multiple times over the last week to 2 weeks and significant deconditioning over the weekend, she is certainly high risk for again having multiple falls and ultimately resulting in at least some more traumatic injuries including fractures or pelvic fractures or hip fractures. Attempts were made to place the patient at [facility], however, again, her insurance felt she did not meet criteria to be in that facility although possibly a long-term unit. Given the fact that she is significantly deconditioned and certainly not safe at home, she is going to be placed in observation in attempts to get her to an environment where she can get some help and reconditioning. Due to the COVID pandemic, Swing Bed is not an option here in [place], but certainly being placed in a long-term unit will likely be the better course of action. She is going to be placed in observation. She is in stable condition at time of admission. PAST MEDICAL HISTORY: 1. Parkinson's disease. 2. Lewy body dementia. 3. Chronic bronchitis. 4. Coronary artery disease. 5. Hyperlipidemia. 6. Gastroesophageal reflux disease. 7. Osteoarthritis. PAST SURGICAL HISTORY: 1. Appendectomy. 2. Cholecystectomy. 3. Left knee replacement. 4. Bronchoscopy. 5. Angioplasty. OUTPATIENT MEDICATIONS: We are awaiting an updated list of those medications. ALLERGIES: CODEINE, TRAMADOL. FAMILY HISTORY: Positive for colon cancer. SOCIAL HISTORY: She is . She lives with her who is her primary cook cashier food prep, but is debilitated himself. Dr. Harrison is her primary care physician. She has no history of tobacco, alcohol or illicit drug use. REVIEW OF SYSTEMS: Difficult to fully obtain due to the patient's mental status. From review of records and what little the patient can answer: CONSTITUTIONAL: Negative for any fevers, chills or significant weight loss. HEENT: Negative for sore throats, earaches, nasal congestion, vision changes. RESPIRATORY: Negative for coughing, wheezing or shortness of breath. CARDIOVASCULAR: Negative for chest pain, palpitations or tachycardia. GASTROINTESTINAL: Negative for nausea, vomiting, diarrhea, constipation or abdominal pain. GENITOURINARY: Currently under treatment for urinary tract infection, but denies any dysuria, hematuria, polyuria. SKIN: Multiple ecchymotic areas with multiple falls, but no reported lesions, rashes or unexplained changes. NEUROLOGIC: As noted in history of present illness, history of Lewy body dementia and Parkinson's. HEMATOLOGIC: Negative for easy bruising, unexplained bleeding or transfusion reactions. PHYSICAL EXAMINATION: VITAL SIGNS: Temperature 96.8, pulse 92, blood pressure 158/81, respirations 16, saturation 96% on room air. GENERAL: The patient is very frail. She is lethargic, drowsy, but will awaken and when she does, she is quite anxious. She is very unkept and has obvious multiple skin bruising from multiple falls. She does look advanced for her age. HEENT: Tympanic membranes clear bilaterally. Oropharynx is pink, but mucous membranes dry. NECK: Supple, nontender with full range of motion. RESPIRATORY: Lung sounds are clear to auscultation bilaterally without any rhonchi, wheezes or rales. CARDIOVASCULAR: Regular rate and rhythm without any appreciable murmurs, gallops, or rubs. ABDOMEN: Soft, nontender. Positive bowel sounds. EXTREMITIES: There is no cyanosis, clubbing or edema. She does have multiple areas that are tender to palpation from multiple falls. She has some pain on passive rotation and extension of her shoulders, elbows and hips, essentially all joints with no obvious deformities. NEUROLOGIC: Cranial nerves II-XII appear grossly intact. There are no obvious neuromotor focal deficits. She does have Parkinson's and is obviously weak as she requires two people to assist her to even stand. She is obviously confused at times. SKIN: Pale and dry. LABORATORY: White count 12,300, hemoglobin 15.2, hematocrit 44.4, platelet count 379,000. Differential was without a left shift. Chemistries showed essentially normal electrolytes. Creatinine 0.93, BUN 22. Lactic acid normal at 1.0. Bilirubin slightly elevated at 1.1. AST a little elevated at 79. CPK elevated at 1480. TSH normal at 1.06. Urinalysis showed 40 ketones, small amount of blood. Microscopic showed 5 to 10 RBCs, 3 to 5 WBCs, 5 to 10 epithelials, 1+ bacteria. MICROBIOLOGY: Respiratory panel was negative for COVID. All other viral and bacterial agents were negative. Blood cultures pending. Review of her culture done on 10/27/19 showed no growth at 48 hours. RADIOLOGY: She had multiple imaging studies including CT of the head, cervical, neck without any acute findings. X-rays of the shoulders, pelvis, hands, femur, elbow all without any acute findings. Chest x-ray showed normal one-view chest. Please see all those reports for details. ASSESSMENT: 1. Significant de-conditioning with multiple falls. 2. Orthostasis due to dehydration with some delirium. 3. Inability to perform her daily activities secondary to deconditioning. 4. Lewy body dementia. 5. Significant nutritional deficits with failure to thrive due to advanced age and inability to perform daily activities. 6. Traumatic rhabdomyolysis from multiple falls. 7. History of Parkinson's disease, not currently controlled as evidenced by multiple falls and increasing weakness. 8. History of gastroesophageal reflux disease. 9. History of osteoarthritis. 10. History of hyperlipidemia. 11. History of coronary artery disease. 12. History of chronic bronchitis with no signs of current active disease. PLAN: Ms. Clemente is going to be placed in observation in attempt to get her approved to go a long-term unit. She is not anywhere safe to go home. She cannot go to a rehab center at this time as she missed that window due to her lack of insurance coverage and her significant deconditioning to the point where she is going to have to go to long-term with some in-house rehab and long-term care and is not able to participate in aggressive rehab program at this point. She is dehydrated and we will start her on some fluids, encourage oral intake and watch her I&Os closely. She will be on DVT prophylaxis. We will check her labs in the morning. Laurence is working to get placement and approval to go to [facility] which hopefully will occur tomorrow or the next. She will continue with her home antibiotics of cefdinir for treatment of underlying urinary tract infection. We will resume the rest of her medications as appropriate to care. I anticipate hoping discharging in the next 24 to 48 hours as soon as we can get her placed in a long-term facility. Until then, we will continue to monitor and treat as needed. #[id number]
[2019-11-01] MEDS ORDERED: SODIUM CHLORIDE 0.9% (FLUSH) 10 ML SYG IV PRN (13:05)
[2019-11-01] MEDS ORDERED: ONDANSETRON INJ 4 MG/2 ML VIAL IV PRN (13:05)
[2019-11-01] MEDS ORDERED: ACETAMINOPHEN 325 MG TAB PO PRN (13:05)
[2019-11-01] MEDS ORDERED: IV SET AND CAP CHANGE INJ INJ SCH (13:30)
[2019-11-01] MEDS ORDERED: KCL 20 MEQ/NS 1,000 ML IVS ONE (16:06)
[2019-11-01] MEDS ORDERED: KCL 20 MEQ/NS 1,000 ML IVS PRN (16:11)
[2019-11-01] MEDS ORDERED: diphenhydrAMINE HCL 25 MG CAP PO PRN (19:23)
[2019-11-01] MEDS ORDERED: SERTRALINE HCL 50 MG TAB ONE (19:44)
[2019-11-01] MEDS ORDERED: CEFDINIR 300 MG CAP ONE (19:44)
[2019-11-01] MEDS ORDERED: QUEtiapine FUMARATE 100 MG TAB ONE (19:45)
[2019-11-01] MEDS: CEFDINIR 300 MG CAP PO SCH (19:52)
[2019-11-01] MEDS: PERPHENAZINE 8 MG PO SCH (20:11)
[2019-11-01] MEDS ORDERED: SERTRALINE HCL 50 MG TAB PO SCH (21:00)
[2019-11-01] MEDS ORDERED: QUEtiapine FUMARATE 100 MG TAB PO SCH (21:00)
[2019-11-02] MEDS ORDERED: ESLICARBAZEPINE ACETATE PO SCH (09:00)
[2019-11-02] MEDS ORDERED: ASPIRIN (CHEWABLE) 81 MG TAB PO SCH (09:00)
[2019-11-02] MEDS ORDERED: METOPROLOL SUCCINATE XL 25 MG TAB PO SCH (09:00)
[2019-11-02] MEDS ORDERED: DONEPEZIL HCL 5 MG TAB PO SCH (09:00)
[2019-11-02] MEDS ORDERED: ENOXAPARIN SODIUM 40 MG/0.4 ML SYG SUBCU SCH (09:00)
[2019-11-02] MEDS: CEFDINIR 300 MG CAP PO SCH (09:20)
[2019-11-02] MEDS: PERPHENAZINE 8 MG PO SCH (09:21)
[2019-11-02 16:45] VITALS: BP 122/70; TEMP 98; O2SAT 97
--- NOTE | 2019-11-03 11:53 | DS ---
SUPERVISING PHYSICIAN: Luis Mitchell MD ADMISSION DIAGNOSIS: 1. Significant de-conditioning with multiple falls. 2. Orthostasis due to dehydration with some delirium. 3. Inability to perform her daily activities secondary to deconditioning. 4. Lewy body dementia. 5. Significant nutritional deficits with failure to thrive due to advanced age and inability to perform daily activities. 6. Traumatic rhabdomyolysis from multiple falls. 7. History of Parkinson's disease, not currently controlled as evidenced by multiple falls and increasing weakness. 8. History of gastroesophageal reflux disease. 9. History of osteoarthritis. 10. History of hyperlipidemia. 11. History of coronary artery disease. 12. History of chronic bronchitis with no signs of current active disease. DISCHARGE DIAGNOSIS: 1. Significant de-conditioning resulting in multiple falls, needing penitentiary placement and physical therapy. 2. Orthostasis due to dehydration with some exacerbation of delirium, resolved with fluids. 3. Inability to perform her daily activities secondary to significant deconditioning requiring penitentiary placement for the patient's safety. 4. Lewy body dementia complicating the patient's physical conditioning. 5. Significant nutritional deficits with failure to thrive due to advanced age and inability to perform daily activities. 6. Traumatic rhabdomyolysis, mild, resolving with fluids, secondary to multiple falls with normal renal function. 7. History of Parkinson's disease, not currently controlled as evidenced by multiple falls and increasing weakness. 8. History of gastroesophageal reflux disease. 9. History of osteoarthritis. 10. History of hyperlipidemia. 11. History of coronary artery disease. 12. History of chronic bronchitis with no signs of current active disease. REASON FOR HOSPITALIZATION: Ms. Clemente is a 74-year-old female patient that has a past medical history of Lewy body dementia and Parkinson's disease. She had a recent history of being in the Emergency Room on the 10/27/19 with multiple falls, was placed in observation and discharged go to rehab facility at [facility] due to her significant deconditioning and multiple falls, however, the insurance did not accept her as a patient and recommended she could improve at home or possibly a penitentiary unit. The patient was discharged home and over the weekend, sustained multiple falls, in fact, EMS was called to her house 4 or 5 times over the weekend as noted today in the Emergency Room on review of those records due to the patient being a very poor historian. The patient was notably confused and dehydrated. Apparently she had fallen at home again as her is her correspondence renew clerk, but apparently not able to significantly help her due to the fact that she requires two-person assist to stand. They are not sure how long she was on the floor before EMS was called. She is unsure if she passed out, but she does note she has had some dizziness when she stands up. She also had a urinary tract infection on discharge and was still being treated for this, but has had a significant decrease in urine output, oral intake and significant deconditioning over the weekend. A workup in the Emergency Room was completed. No acute bony injuries were noted. Her laboratory studies did show she had a mild leukocytosis, but no left shift. Her electrolytes were within normal limits, but BUN was elevated indicating some dehydration. Her CPK was elevated at 1480. Troponin was normal at 0.03. TSH was normal at 1.06. Urinalysis with catheterized urine showed 40 ketones, small amount of blood. Microscopic showed 5 to 10 RBCs, 3 to 5 WBCs, 5 to 10 epithelials, trace amorphus material and 1+ bacteria with large amount of mucus. Her vital signs in the Emergency Room showed she was mildly hypothermic with temperature 96.8, pulse 92, blood pressure 159/92 sitting, but supine she was 158/81 and standing 142/87. Heart rate was only 71. Oxygen saturation 96% on room air. Radiographic studies were completed of her upper extremities, pelvis and cervical spine with CT with no acute findings. Given the fact that she has Parkinson's, Lewy body dementia and has been falling multiple times over the last week to 2 weeks and significant deconditioning over the weekend, she is certainly high risk for again having multiple falls and ultimately resulting in at least some more traumatic injuries including fractures or pelvic fractures or hip fractures. Attempts were made to place the patient at [facility], however, again, her insurance felt she did not meet criteria to be in that facility although possibly a penitentiary unit. Given the fact that she is significantly deconditioned and certainly not safe at home, she is going to be placed in observation in attempts to get her to an environment where she can get some help and reconditioning. Due to the COVID pandemic, Swing Bed is not an option here in [place], but certainly being placed in a penitentiary unit will likely be the better course of action. She is going to be placed in observation. She is in stable condition at time of admission. LABORATORY: White count on discharge 8,500, hemoglobin 15, hematocrit 44.9, platelet count 330,000, differential without a left shift. Chemistries on discharge showed normal electrolytes with BUN 17, creatinine 0.79. CPK initially 1684. With fluids and prior to discharge, it was down to 648. Calcium normal at 9.1. Lactic acid within normal limits. Bilirubin was only slightly elevated prior to fluids. All other liver functions within normal limits except for another elevation of AST which likely is due to her ongoing dehydration status. TSH normal. Urinalysis showed 40 ketones, small amount of blood. Microscopic revealed 5 to 10 RBCs, to 3 to 5 WBCs and 5 to 10 epithelials with 1+ bacteria. MICROBIOLOGY: Blood cultures were pending and negative at 48 hours. Respiratory was negative for all viral and bacterial targets tested. RADIOLOGY: She had multiple x-rays of her elbow, femur, hand, pelvis, shoulder and CT of the head and cervical spine, all without any acute findings. Please see all those reports for details. Her chest x-ray showed normal upright chest, single-view per radiologic interpretation. HOSPITAL COURSE: Ms. Clemente was admitted for dehydration. She was given fluids overnight and did show some improvement . Given that she has significant deconditioning and has had multiple falls over the last week, initially the plan was to go to [facility], however, the patient is no longer able to rehab at that level and requires placement in penitentiary hopefully to transition to a rehab facility once she is improved and can participate. Her dehydration had resolved with fluids and she was felt clinically stable enough to continue with outpatient management to discharge to [facility] for ongoing physical therapy and rehabilitation for her deconditioning and significantly weakened state. PLAN: Ms. Clemente was discharged and admitted to [facility] penitentiary unit. She was to have physical therapy evaluation and treatment. Nursing orders were per protocol and as per Dr. Harrison' orders. Diet was to be with nutritional consultation and normal diet as tolerated. Medications were to be as prescribed on the medication administration record including continuation of her antibiotic coverage on previous discharge with cefdinir for questionable urinary tract infection. She is to have followup with Dr. Harrison in one to two weeks or sooner as needed. They were to call Dr. Harrison' office with any questions. They were given instructions to bring her back to the ER if there were any concerning symptoms. No medications prescribed on discharge. She was to push fluids to prevent dehydration and return to the Emergency Department if she needed. CONDITION ON DISCHARGE: Stable and improved. DISPOSITION: The patient was discharged and admitted to penitentiary unit at [facility]. #[id number] MTDD
== END 2019-11-02 15:10 ==
LOC: ER 07:47 → UNDOADMOB 10:57 → MS 10:57
PROVIDERS: ADMIT Nurse Practitioner Family; ATTEND Nurse Practitioner Family
DX: I95.1 Orthostatic hypotension (principal); R29.6 Repeated falls; E86.0 Dehydration; G31.83 Neurocognitive disorder with Lewy bodies; F02.80 Dementia in other diseases classified elsewhere, unspecified severity, without behavioral disturbance, psychotic disturbance, mood disturbance, and anxiety; F05 Delirium due to known physiological condition; R62.7 Adult failure to thrive; T79.6XXA Traumatic ischemia of muscle, initial encounter; T68.XXXA Hypothermia, initial encounter; I25.10 Atherosclerotic heart disease of native coronary artery without angina pectoris; K21.9 Gastro-esophageal reflux disease without esophagitis; E78.5 Hyperlipidemia, unspecified; M19.90 Unspecified osteoarthritis, unspecified site; J42 Unspecified chronic bronchitis; M25.511 Pain in right shoulder; R10.2 Pelvic and perineal pain; M79.641 Pain in right hand; M79.651 Pain in right thigh; M25.521 Pain in right elbow; M54.2 Cervicalgia; R51 Headache; E07.9 Disorder of thyroid, unspecified; Z79.82 Long term (current) use of aspirin; Z79.899 Other long term (current) drug therapy; Z68.27 Body mass index [BMI] 27.0-27.9, adult; Z96.652 Presence of left artificial knee joint; Z98.61 Coronary angioplasty status; Z90.49 Acquired absence of other specified parts of digestive tract; Z88.6 Allergy status to analgesic agent; Z80.0 Family history of malignant neoplasm of digestive organs; W19.XXXA Unspecified fall, initial encounter; Y92.009 Unspecified place in unspecified non-institutional (private) residence as the place of occurrence of the external cause
CPT/HCPCS: 51702; 96360; 96372; Q0163; J7030; J1650; J3480; 80048; 82553; 80053; 36415 ×4; 81001; 85025 ×2; 82550 ×2; 87040 ×2; 83735; 84443; 84484; 83880; 83605; 71045; 72170; 73030; 73070; 73551; 73120; 70450; 72125; 94760 ×2; 97162; 99285; G0378; 87635

== ENCOUNTER → 2020-02-01 | Outpatient (CLI) | payer OTHER | LOC: GT 17:01 → GMAJS 17:01 | PROVIDERS: ATTEND Physician Assistant | DX: U07.1 COVID-19 (principal); R71.8 Other abnormality of red blood cells; R09.02 Hypoxemia ==

== ENCOUNTER 2020-02-08 14:03 | Observation (INO) | payer OTHER ==
--- NOTE | 2020-02-08 14:56 | RAD ---
EXAM DESCRIPTION: Chest,1 View CLINICAL HISTORY: 74 years Female, covid COMPARISON: November 01, 2019 Findings: One view(s)/radiograph(s) Cardiac silhouette and pulmonary vasculature are within normal limits. No pneumothorax. No pleural effusion. Patchy bibasilar and right midlung airspace opacities. No confluent consolidation. No acute osseous abnormality. IMPRESSION: Scattered bilateral patchy airspace opacities which may be infectious. 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
[2020-02-08] MEDS ORDERED: KETOROLAC TROMETHAMINE INJ 30 MG/ML VIAL ONE (15:39)
[2020-02-08] MEDS ORDERED: AZITHROMYCIN IV 500 MG in SODIUM CHLORIDE 0.9% 250ML 250 ML IVPB ONE (15:40)
[2020-02-08] MEDS ORDERED: cefTRIAXone SODIUM 1 GM in SODIUM CHL 0.9% 50ML MIN-BAG+ 50 ML IVPB ONE (15:40)
[2020-02-08] MEDS ORDERED: DEXAMETHASONE INJ 4 MG/ML VIAL IV ONE (15:40)
[2020-02-08] MEDS ORDERED: ERYTHROMYCIN OPHTH OINT 1 APPLIC LEFT_EYE ONE (15:51)
[2020-02-08] MEDS ORDERED: KETOROLAC TROMETHAMINE INJ 30 MG/ML VIAL IV ONE (15:56)
[2020-02-08] MEDS ORDERED: REMDESIVIR 200 MG in SODIUM CHLORIDE 0.9% 250ML 250 ML IVPB SCH (16:00)
[2020-02-08] MEDS ORDERED: LORazepam 0.5 MG TAB PO ONE (16:03)
--- NOTE | 2020-02-08 16:18 | RAD ---
EXAM DESCRIPTION: Hip,Right 2 Views (accession [id number]), Pelvis (accession [id number]) CLINICAL HISTORY: 74 years Female, pain COMPARISON: None. Findings: Three views/radiographs Location: Right hip/pelvis No acute fracture or dislocation. Mild scattered degenerative changes in the hip/pelvis. Soft tissues are unremarkable. IMPRESSION: No evidence of acute process in the right hip/pelvis. Electronically signed by: Bon Ruiz MD 02/08/2020 4:17 PM [facility]
--- NOTE | 2020-02-08 16:18 | RAD ---
EXAM DESCRIPTION: Hip,Right 2 Views (accession [id number]), Pelvis (accession [id number]) CLINICAL HISTORY: 74 years Female, pain COMPARISON: None. Findings: Three views/radiographs Location: Right hip/pelvis No acute fracture or dislocation. Mild scattered degenerative changes in the hip/pelvis. Soft tissues are unremarkable. IMPRESSION: No evidence of acute process in the right hip/pelvis. Electronically signed by: Bon Ruiz MD 02/08/2020 4:17 PM [facility]
--- NOTE | 2020-02-08 16:29 | ED.PDOC ---
History of Present Illness - General Chief Complaint: Neuro Symptoms/Deficits Stated Complaint: altered mental status Time Seen by Provider: 02/08/20 14:05 Source: patient, EMS notes reviewed, shelter records Exam Limitations: clinical condition - History of Present Illness Initial Comments: The patient is a 74-year-old female presented emergency room secondary to increased cough and having tested positive for coronavirus. Additionally, a few hours before the patient came up here she was adjusting her blanket with a pencil in her hand and she poked herself in the eye. She does have what is obviously a corneal abrasion at 5:00. There is obvious surrounding erythema. Pupil appears reactive. No evidence of hyphema. Extraocular movements are intact. Additionally the patient reports multiple falls in the recent past and she is having some right hip pain. No falls today. I see no evidence of bruising. No gross deformity. There is some pain with passive and active range of motion of the right hip. No crepitus. The patient reports increased cough and a runny nose as well as a mild sore throat. She is not really reporting much in the way of shortness of breath. The patient does have significant dementia which does limit the history. The patient apparently tested positive little while ago. Additionally, when the patient blood pressure is being taken, she tenses up the extremity it is being taken in and causing a falsely elevated reading. This does need to be watched for an recording. Timing/Duration: unsure Severity: moderate Improving Factors: nothing Worsening Factors: nothing Associated Symptoms: cough, malaise Allergies/Adverse Reactions: Allergies Codeine Allergy (Verified 11/01/19 08:04) Tramadol Allergy (Verified 11/01/19 08:04) Home Medications: Ambulatory Orders Aspirin [Aspirin Childrens] 81 mg PO DAILY 10/27/19 Metoprolol Succinate [Metoprolol Succinate ER] 25 mg PO DAILY 10/27/19 Quetiapine Fumarate 600 mg PO BEDTIME 10/27/19 Donepezil Hydrochloride [Donepezil HCl] 10 mg PO DAILY 11/01/19 Lorazepam 1 mg PO .1500 11/01/19 Lorazepam 2 mg PO BID 11/01/19 Perphenazine 8 mg PO BID 11/01/19 Sertraline HCl [Sertraline Hydrochloride] 200 mg PO BEDTIME 11/01/19 Tobramycin-Dexamethasone [Tobramycin/Dexamethasone 0.3-0.1 %] 1 sam OP QID 11/01/19 Apixaban [Eliquis] 5 mg PO BID 02/08/20 Eslicarbazepine Acetate [Aptiom] 100 mg PO DAILY 02/08/20 Review of Systems - Review of Systems Constitutional: States: malaise EENTM: States: eye pain Respiratory: States: cough, short of breath Cardiology: States: no symptoms reported Gastrointestinal/Abdominal: States: no symptoms reported Genitourinary: States: no symptoms reported Musculoskeletal: States: see HPI, joint pain Skin: States: no symptoms reported Neurological: States: anxiety Endocrine: States: no symptoms reported All other Systems: No Change from Baseline Past Medical History (General) - Patient Medical History Hx Seizures: Yes Hx Stroke: No Hx Dementia: Yes Hx Asthma: No Hx of COPD: No Hx Cardiac Disorders: Yes - Heart Cath Hx Congestive Heart Failure: No Hx Pacemaker: No Hx Hypertension: Yes Hx Thyroid Disease: No Hx Diabetes: No Hx Gastroesophageal Reflux: No Hx Renal Disease: Yes - SEES FITNESS/WELLNESS DIRECTOR DR. MCQUEEN Hx Cancer: No Hx of HIV: No Hx Hepatitis C: No Hx MRSA: No MRSA Source:: Wound - Vaccination History Hx Tetanus, Diphtheria Vaccination: Yes Hx Influenza Vaccination: No Hx Pneumococcal Vaccination: No - Social History Hx Tobacco Use: No Hx Chewing Tobacco Use: No Hx Alcohol Use: No Hx Substance Use: No Hx Substance Use Treatment: No Hx Depression: No Hx Physical Abuse: No Hx Emotional Abuse: No Hx Suspected Abuse: No - Female History Patient : No Family Medical History - Family History Mother Family History: Unknown Hx Cardiac Disease: Yes - multiple family members Physical Exam - Physical Exam General Appearance: Alert, Anxious Eye Exam: right normal, left other - See history of present illness. Ears, Nose, Throat: hearing grossly normal, normal pharynx, nasal congestion Neck: non-tender, supple Respiratory: no respiratory distress, no accessory muscle use, rhonchi Cardiovascular/Chest: normal peripheral pulses, regular rate, rhythm, no edema Peripheral Pulses: radial,right: 2+, radial,left: 2+ Gastrointestinal/Abdominal: non tender, soft Rectal Exam: deferred Back Exam: no CVA tenderness, no vertebral tenderness Extremity: no pedal edema, no calf tenderness, normal capillary refill, other - The patient has tenderness to palpation over the anterior aspect of the right hip. Suspected right inguinal strain Neurologic: electroplater II-XII nml as tested, alert, normal mood/affect - She is anxious Skin Exam: normal color Comments: Vital Signs - 24 hr 02/08/20 14:14 Temperature 97.0 F L Pulse Rate [ 64 left brachial] Respiratory 20 Rate Blood Pressure 167/77 [left brachial] O2 Sat by Pulse 100 Oximetry Progress - Progress Progress: 02/08/20 16:38 The patient is a 74-year-old female with what appears to be coronavirus pneumonia. The patient is being started on dexamethasone, Rocephin, azithromycin and remdesivir. Oxygen saturations are not bad at this point but do require watching. Chest x-ray is concerning. She does have multiple increased markers for inflammation when compared to her lab work a week ago. The patient does have a prolonged QT interval, therefore while she is taking a azithromycin she does need to have daily repeat EKGs and likely need to be monitored on telemetry. The patient also has a corneal abrasion to the left eye from where she poked herself in the eye earlier today with a pencil. She has been started on erythromycin ointment for that eye and this does need to be followed clinically. Additionally the patient is having right hip pain likely from recent falls. X-rays here today show no evidence of dislocation or fracture. If symptoms worsen then additional imaging could be performed. As is, she does need help getting around to prevent falls. She did receive a dose of Toradol here for discomfort which has helped. Additionally she was due for a dose of Ativan which she received here as well. The patient does tense up significantly with the blood pressure, which does give a falsely elevated blood pressure. This does need to be noted and false highs not recorded. jean vazquez [phone] - Results/Orders Results/Orders: Chest x-ray shows scattered pulmonary opacities consistent with coronavirus pneumonia EKG shows normal sinus rhythm at 64 bpm. Normal axis. Normal R wave progression. Borderline LVH criteria. No definitive ST segment or T wave changes indicative of acute ischemia. Prolonged QT interval. Laboratory Results - last 24 hr 02/08/20 02/08/20 02/08/20 14:15 14:15 14:15 WBC 7.4 RBC 4.89 Hgb 14.4 Hct 42.1 MCV 86.3 MCH 29.4 MCHC 34.1 RDW 14.8 H Plt Count 264 MPV 7.9 Absolute Neuts (auto) 5.70 Absolute Lymphs (auto) 1.10 Absolute Monos (auto) 0.60 Absolute Eos (auto) 0.00 Absolute Basos (auto) 0.00 Neutrophils % 77.2 Lymphocytes % 14.5 L Monocytes % 7.4 Eosinophils % 0.4 L Basophils % 0.5 PT INR PTT (SP) Fibrinogen D-Dimer, Quantitative Sodium 137 Potassium 3.6 Chloride 100 L Carbon Dioxide 24 Anion Gap 16.6 BUN 18 Creatinine 0.87 BUN/Creatinine Ratio 20.7 H Random Glucose 94 Serum Osmolality 275.5 Lactic Acid Calcium 9.1 Magnesium 1.9 Ferritin 262.9 Total Bilirubin 0.8 AST 36 ALT 16 Alkaline Phosphatase 80 LD Total 182 H D Creatine Kinase 194 H CK-MB (CK-2) 3.8 CK-MB (CK-2) % 1.96 Troponin I < 0.02 C-Reactive Protein 3.7 H B-Natriuretic Peptide 27.9 Serum Total Protein 7.8 Albumin 4.5 Globulin 3.3 Albumin/Globulin Ratio 1.4 02/08/20 02/08/20 14:15 14:15 WBC RBC Hgb Hct MCV MCH MCHC RDW Plt Count MPV Absolute Neuts (auto) Absolute Lymphs (auto) Absolute Monos (auto) Absolute Eos (auto) Absolute Basos (auto) Neutrophils % Lymphocytes % Monocytes % Eosinophils % Basophils % PT 10.8 INR 1.09 PTT (SP) 38.8 H Fibrinogen 532 H D-Dimer, Quantitative 286.0 Sodium Potassium Chloride Carbon Dioxide Anion Gap BUN Creatinine BUN/Creatinine Ratio Random Glucose Serum Osmolality Lactic Acid 0.8 Calcium Magnesium Ferritin Total Bilirubin AST ALT Alkaline Phosphatase LD Total Creatine Kinase CK-MB (CK-2) CK-MB (CK-2) % Troponin I C-Reactive Protein B-Natriuretic Peptide Serum Total Protein Albumin Globulin Albumin/Globulin Ratio Departure - Departure Clinical Impression: Pneumonia due to human coronavirus Corneal abrasion, left Qualifiers: Encounter type: initial encounter Qualified Code(s): S05.02XA - Injury of conjunctiva and corneal abrasion without foreign body, left eye, initial encounter Strain of right hip Qualifiers: Encounter type: initial encounter Qualified Code(s): S76.011A - Strain of muscle, fascia and tendon of right hip, initial encounter Disposition: Admit Patient Condition: Poor Departure Forms: ED Discharge - Pt. Copy, Patient Portal Self Enrollment Referrals: Justin Harrison MD [Primary Care Provider] - 1-2 Weeks Home Medications: Ambulatory Orders Aspirin [Aspirin Childrens] 81 mg PO DAILY 10/27/19 Metoprolol Succinate [Metoprolol Succinate ER] 25 mg PO DAILY 10/27/19 Quetiapine Fumarate 600 mg PO BEDTIME 10/27/19 Donepezil Hydrochloride [Donepezil HCl] 10 mg PO DAILY 11/01/19 Lorazepam 1 mg PO .1500 11/01/19 Lorazepam 2 mg PO BID 11/01/19 Perphenazine 8 mg PO BID 11/01/19 Sertraline HCl [Sertraline Hydrochloride] 200 mg PO BEDTIME 11/01/19 Tobramycin-Dexamethasone [Tobramycin/Dexamethasone 0.3-0.1 %] 1 sam OP QID 11/01/19 Apixaban [Eliquis] 5 mg PO BID 02/08/20 Eslicarbazepine Acetate [Aptiom] 100 mg PO DAILY 02/08/20 Decision To Admit - Decistion To Admit Decision to Admit Reason: Medical Nature Decision to Admit Date: 02/08/20 Decision to Admit Time: 16:43
--- NOTE | 2020-02-08 16:31 | HP ---
SUPERVISING PHYSICIAN: Jakob John MD CHIEF COMPLAINT: COVID-19. HISTORY OF PRESENT ILLNESS: This is a 74-year-old female patient who resides at a care home. She tested positive for marsh virus. She has also had multiple falls in the last few weeks and now she complains of some right hip pain as well. A few hours prior to coming to the Emergency Room she was adjusting her bed clothes in her room and she accidentally poked herself in the eye. She has a ____ - CUT OFF DUE TO "TONE INTERFERENCE" MTDD
[2020-02-08] MEDS ORDERED: ACETAMINOPHEN 325 MG TAB PO PRN (17:30)
[2020-02-08] MEDS ORDERED: IV SET AND CAP CHANGE INJ INJ SCH (17:30)
[2020-02-08] MEDS ORDERED: SODIUM CHLORIDE 0.9% (FLUSH) 10 ML SYG IV PRN (17:30)
[2020-02-08] MEDS ORDERED: ONDANSETRON INJ 4 MG/2 ML VIAL IV PRN (17:30)
[2020-02-08] MEDS ORDERED: ALBUTEROL INHALER 64 PUFF/8GM INH PRN (17:33)
[2020-02-08] MEDS ORDERED: LORAZEPAM 1 MG PO SCH (17:45)
[2020-02-08] MEDS ORDERED: LORazepam 1 MG TAB ONE (18:52)
[2020-02-08] MEDS ORDERED: SERTRALINE HCL 50 MG TAB ONE (18:53)
[2020-02-08] MEDS ORDERED: QUEtiapine FUMARATE 100 MG TAB ONE (18:53)
[2020-02-08] MEDS: LORAZEPAM 2 MG PO SCH (20:05)
[2020-02-08] MEDS: BIFIDOBACTERIUM INFANTIS 4 MG CAP PO SCH (20:06)
[2020-02-08] MEDS: guaiFENesin ER TAB 600 MG TAB PO SCH (20:06)
[2020-02-08] MEDS: APIXABAN 5 MG TAB PO SCH (20:06)
[2020-02-08] MEDS: SODIUM CHLORIDE 0.9% (FLUSH) 10 ML SYG IV SCH (20:08)
[2020-02-08] MEDS ORDERED: diphenhydrAMINE HCL 50 MG/ML VIAL IV PRN (21:00)
[2020-02-08] MEDS ORDERED: HALOPERIDOL LACTATE INJ 5 MG/ML VIAL IM PRN (21:00)
[2020-02-08] MEDS ORDERED: SERTRALINE HCL 200 MG PO SCH (21:00)
[2020-02-08] MEDS ORDERED: QUETIAPINE FUMARATE 600 MG PO SCH (21:00)
[2020-02-08] MEDS: ALBUTEROL INHALER 64 PUFF/8GM INH SCH (22:25)
[2020-02-08] MEDS: TOBRAMYCIN DEXAMETHASONE OP SCH (22:59)
[2020-02-08] MEDS: PERPHENAZINE 8 MG PO SCH (22:59)
[2020-02-08] MEDS: [UNRECOGNIZED DRUG - OTHER] OP SCH (22:59)
[2020-02-09 00:35] VITALS: O2SAT 97
[2020-02-09] MEDS ORDERED: PANTOPRAZOLE SODIUM IV 40 MG VIAL IV SCH (06:30)
--- NOTE | 2020-02-09 08:19 | CT ---
EXAM DESCRIPTION: Chest w/o Contrast CLINICAL HISTORY: covid COMPARISON: Chest radiograph 02/08/2020 TECHNIQUE: Multiple axial images of the chest without contrast Multiplanar reconstructions were provided. This exam was performed according to our departmental dose-optimization program, which includes automated exposure control, adjustment of the mA and/or kV according to patient size and/or use of iterative reconstruction technique. FINDINGS: Mildly degraded image quality secondary to motion artifact. This somewhat limits evaluation. Lungs: Multifocal peripheral groundglass opacities in both lungs. No pleural effusion. Mediastinum: Limited evaluation due to lack of IV contrast. The heart is normal in size. Atherosclerosis in the thoracic aorta and coronary arteries. Small hiatal hernia. The trachea is unremarkable. Lymph nodes: There are no pathologically enlarged lymph nodes by CT size criteria. Chest wall and lower neck: Nodules in both thyroid lobes measuring up to 2.5 cm on the left. Bones: Multilevel thoracic spondylosis. Upper abdomen: Unremarkable. IMPRESSION: 1. Commonly reported imaging features of COVID-19 pneumonia are present. Other processes such as influenza pneumonia and organizing pneumonia, as can be seen with drug toxicity and connective tissue disease, can cause a similar imaging pattern. [PneTyp] Reference: https://pubs.rsna.org/doi/full/10.1148/ryct.8369138652 2. Nodules in the thyroid gland measuring up to 2.5 cm. Recommend follow-up thyroid ultrasound. 3. Other findings as above. 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
[2020-02-09] MEDS ORDERED: ESLICARBAZEPINE ACETATE PO SCH (09:00)
[2020-02-09] MEDS ORDERED: ASPIRIN (CHEWABLE) 81 MG TAB PO SCH (09:00)
[2020-02-09] MEDS ORDERED: METOPROLOL SUCCINATE XL 25 MG TAB PO SCH (09:00)
[2020-02-09] MEDS ORDERED: cefTRIAXone SODIUM 1 GM in SODIUM CHL 0.9% 50ML MIN-BAG+ 50 ML IVPB SCH (09:00)
[2020-02-09] MEDS ORDERED: DEXAMETHASONE INJ 10 MG/ML VIAL IV SCH (09:00)
[2020-02-09] MEDS ORDERED: ERYTHROMYCIN OPHTH OINT 1 APPLIC LEFT_EYE SCH (09:00)
[2020-02-09] MEDS ORDERED: NON-FORMULARY MEDICATION 1 EA MIS (Donepezil Hydrochloride [Donepezil Hcl] 10 MG) PO SCH (09:00)
[2020-02-09] MEDS: ALBUTEROL INHALER 64 PUFF/8GM INH SCH (09:42)
[2020-02-09] MEDS ORDERED: DONEPEZIL HCL 5 MG TAB PO SCH (10:00)
[2020-02-09] MEDS ORDERED: AZITHROMYCIN IV 500 MG in SODIUM CHLORIDE 0.9% 250ML 250 ML IVPB SCH (10:00)
[2020-02-09] MEDS ORDERED: LORazepam 1 MG TAB PO SCH ×2 (10:00→15:00)
[2020-02-09] MEDS: SODIUM CHLORIDE 0.9% (FLUSH) 10 ML SYG IV SCH (10:13)
[2020-02-09] MEDS: TOBRAMYCIN DEXAMETHASONE OP SCH (10:14)
[2020-02-09] MEDS: [UNRECOGNIZED DRUG - OTHER] OP SCH (10:14)
[2020-02-09] MEDS: APIXABAN 5 MG TAB PO SCH (10:46)
[2020-02-09] MEDS: BIFIDOBACTERIUM INFANTIS 4 MG CAP PO SCH (10:46)
[2020-02-09] MEDS: PERPHENAZINE 8 MG PO SCH (10:47)
[2020-02-09] MEDS ORDERED: LORazepam 1 MG TAB ONE (11:08)
[2020-02-09] MEDS: LORAZEPAM 2 MG PO SCH (11:10)
[2020-02-09] MEDS: guaiFENesin ER TAB 600 MG TAB PO SCH (11:23)
[2020-02-09] MEDS ORDERED: REMDESIVIR 100 MG in SODIUM CHLORIDE 0.9% 250ML 250 ML IVPB SCH (12:00)
[2020-02-09] MEDS ORDERED: TOBRAMYCIN-DEXAMETH OPHTH SOL 1 DROP BOTH_EYES SCH (13:00)
--- NOTE | 2020-02-09 15:12 | SSS ---
SUPERVISING PHYSICIAN: Jakob John MD DATE OF ADMISSION: 02/08/20 DATE OF DISCHARGE: 02/09/20 DISCHARGE DIAGNOSIS: 1. COVID-19 pneumonitis. 2. Advanced dementia. 3. 2.[address] scan, recommend followup thyroid ultrasound. 4. Corneal abrasion to the left eye due to self-inflicted accidental trauma. 5. Right hip pain with negative x-rays, due to a recent same-level fall. 6. Parkinson's disease. 7. Coronary artery disease. 8. Hyperlipidemia. 9. Gastroesophageal reflux disease. 10. Chronic obstructive pulmonary disease with mild exacerbation. HISTORY OF PRESENT ILLNESS: This is a 74-year-old female patient who lives at [facility]. She tested positive for coronavirus. She has also had multiple falls over the last few weeks and today she complains of right hip pain. She also has a corneal abrasion to the left eye. She was adjusting her covers at the residential, had a pencil in her hand and accidentally poked herself in the eye. She also has had some mild altered mental status as well as runny nose and mild sore throat. She also has had increasing coughing. There were no reports of shortness of breath. The patient does have white female Lewy body dementia. She actually tested positive several days ago. He initial vital signs showed temperature 97, heart rate 64, blood pressure 167/77, respiratory rate 20 to 24, O2 saturation 100% on room air. She was given azithromycin, ceftriaxone, Decadron and multiple albuterol treatments in the Emergency Room. She was also given some erythromycin drops to the left eye. She was given some mild fluids and placed in observation in the hospital in stable condition. PAST MEDICAL HISTORY: 1. Parkinson's disease. 2. Lewy body dementia. 3. Chronic bronchitis. 4. Coronary artery disease. 5. Hyperlipidemia. 6. Gastroesophageal reflux disease. 7. Osteoarthritis. PAST SURGICAL HISTORY: 1. Appendectomy. 2. Cholecystectomy. 3. Left total knee arthroplasty. 4. Bronchoscopy. 5. Angioplasty. OUTPATIENT MEDICATIONS: 1. Eliquis. 2. Aspirin. 3. Donepezil. 4. Aptiom. 5. Lorazepam. 6. Metoprolol. 7. Perphenazine. 8. Quetiapine. 9. Sertraline. 10. Tobramycin-dexamethasone otic drops. ALLERGIES: CODEINE, TRAMADOL. FAMILY HISTORY: Positive for colon cancer. SOCIAL HISTORY: She is . She lives at [facility]. She sees Dr. Harrison as her primary care physician. There is no history of tobacco, ETOH or illicit drug use. REVIEW OF SYSTEMS: Difficult to obtain due to the patient's mental status. PHYSICAL EXAMINATION: VITAL SIGNS: Temperature 97.6, heart rate 79, blood pressure 179/94, respiratory rate 18, O2 saturation 97% on room air. Her lowest saturations have been 95% on room air. GENERAL: This is a 74-year-old female patient who is lying in her hospital bed. She is confused, agitated and not answering questions at this time. HEENT: Normocephalic. There is a corneal abrasion to the 5 o'clock position on her left cornea. It is slightly reddened and erythematous. It has improved since last night. Pupils are equal and reactive. Oropharynx is clear. NECK: Supple without mass. RESPIRATORY: Essentially clear to auscultation bilaterally. CARDIOVASCULAR: Regular rate and rhythm. GASTROINTESTINAL: Abdomen is soft, nondistended, nontender. Bowel sounds are positive. RECTAL: Deferred. EXTREMITIES: No cyanosis, clubbing or edema. NEUROLOGIC: Awake and alert, but she is anxious, agitated and will not answer questions at this time. SKIN: Warm, pink and dry. LABORATORY: Initial WBCs 7.4 and this morning 6.2. Hemoglobin and hematocrit are stable at 14.2 and 41.5. The remainder of her CBC is unremarkable. PTT was 38.8 yesterday and today is 39. Fibrinogen yesterday was 532 and today is 578. D-dimer was 286 and today is 276. Electrolytes are basically within normal limits with the exception of her BUN is slightly high at 20. Creatinine is normal at 0.79. Lactic acid 0.18. LD on admission was 182 and is now 166. Creatinine kinase was 194 and is now 812. C-reactive protein was 3.7 and now 3.5. MICROBIOLOGY: Preliminary blood cultures are negative to date. RADIOLOGY: Pelvis and hip x-ray show no evidence of acute process in the right hip and pelvis. Chest x-ray shows scattered bilateral patchy airspace opacities which may be infectious. Chest CT this morning shows 1) Commonly reported imaging features of COVID-19 pneumonia present. Other processes such as influenza, pneumonia and organizing pneumonia as can be seen with drug toxicity and connective tissue disease can cause a similar image pattern. 2) Nodules in the thyroid gland measuring up to 2.5 cm. Recommend followup thyroid ultrasound. Please see CT report for complete findings. HOSPITAL COURSE: The patient stayed overnight in the hospital. She remained in stable condition. She was trying to get out of bed and became so agitated that she needed some mild sedation with Ativan and Haldol. She did somewhat calm down. This morning, her labs are basically stable. She is not hypoxic even with exertion. She will be discharged back to [facility] today in stable condition. DISCHARGE PLAN: The patient will be discharged to [facility] in stable condition. She is to resume her previous diet and increase her activity as tolerated. She is to followup with Dr. Harrison within the next 1 to 2 weeks. When she sees Dr. Harrison at followup, a thyroid ultrasound can be scheduled. In addition to her routine medications, she is to continue with Align, guaifenesin, Decadron for 8 days, cefdinir for 7 days, albuterol inhaler and azithromycin for 4 days. She is to return to the hospital or followup with Dr. Harrison for any problems or complications. #[id number] [facility]
[2020-02-09 15:38] VITALS: BP 154/86; TEMP 98.5
[2020-02-09] MEDS ORDERED: QUEtiapine FUMARATE 100 MG TAB PO SCH (21:00)
[2020-02-09] MEDS ORDERED: SERTRALINE HCL 50 MG TAB PO SCH (21:00)
== END 2020-02-09 13:00 ==
LOC: ER 14:03 → MS 16:26
PROVIDERS: ADMIT Nurse Practitioner Acute Care; ATTEND Nurse Practitioner Family
DX: U07.1 COVID-19 (principal); J12.89 Other viral pneumonia; J44.1 Chronic obstructive pulmonary disease with (acute) exacerbation; G31.83 Neurocognitive disorder with Lewy bodies; F02.80 Dementia in other diseases classified elsewhere, unspecified severity, without behavioral disturbance, psychotic disturbance, mood disturbance, and anxiety; E04.1 Nontoxic single thyroid nodule; S05.02XA Injury of conjunctiva and corneal abrasion without foreign body, left eye, initial encounter; M25.551 Pain in right hip; I25.10 Atherosclerotic heart disease of native coronary artery without angina pectoris; E78.5 Hyperlipidemia, unspecified; K21.9 Gastro-esophageal reflux disease without esophagitis; R29.6 Repeated falls; Z79.01 Long term (current) use of anticoagulants; Z79.82 Long term (current) use of aspirin; Z79.899 Other long term (current) drug therapy; Z88.6 Allergy status to analgesic agent; Z96.652 Presence of left artificial knee joint; Z80.0 Family history of malignant neoplasm of digestive organs; W22.8XXA Striking against or struck by other objects, initial encounter; Z91.81 History of falling; Y93.89 Activity, other specified; Y92.122 Bedroom in nursing home as the place of occurrence of the external cause
CPT/HCPCS: 96366; 96367; 96365; 96375 ×2; 96376; J0696 ×2; J1100 ×2; J1200; J1885; J2060; J7050 ×5; J0456 ×2; A4216; 85379 ×2; 82553; 80053 ×2; 36415 ×2; 85384 ×2; 86140 ×2; 85025 ×2; 82550 ×2; 87040 ×2; 82728; 83615 ×2; 83735 ×2; 85730 ×2; 85610; 84484; 83880; 83605; 71045; 72170; 73502; 71250; 94664; 94762; 99285; 93005; G0378

== ENCOUNTER → 2020-02-14 | Outpatient (CLI) | payer OTHER | LOC: GT 21:46 | PROVIDERS: ATTEND Family Medicine | DX: I10 Essential (primary) hypertension (principal); R30.0 Dysuria ==

== ENCOUNTER → 2020-02-16 | Outpatient (CLI) | payer OTHER | LOC: GT 04:14 | PROVIDERS: ATTEND Family Medicine | DX: I10 Essential (primary) hypertension (principal) ==

== ENCOUNTER → 2020-04-15 | Outpatient (CLI) | payer OTHER | LOC: GT 23:19 | PROVIDERS: ATTEND Family Medicine | DX: N39.0 Urinary tract infection, site not specified (principal) ==

== ENCOUNTER → 2020-05-08 | Outpatient (CLI) | payer OTHER | LOC: GT 07:48 | PROVIDERS: ATTEND Family Medicine | DX: N39.0 Urinary tract infection, site not specified (principal); I10 Essential (primary) hypertension; I20.9 Angina pectoris, unspecified; R79.1 Abnormal coagulation profile; R62.7 Adult failure to thrive; G40.89 Other seizures ==